=== PATIENT | male | born 1960 | race Caucasian/White ===

== ENCOUNTER 2016-07-07 16:16 | Emergency (ER) | payer OTHER, BC ==
[~2016-07-07] VITALS: Ht 172.7 cm; Wt 89.4 kg
[~2016-07-07 16:16] MED LIST: ASCA500 PO; MULT-506 PO; SIMV40TA2 PO
[2016-07-07 16:19] VITALS: TEMP 37.1; Ht 172.7 cm; Wt 89.4 kg
[2016-07-07] MEDS ORDERED: CHOL1TAB PO (16:33)
[2016-07-07] MEDS ORDERED: ASPI81TA28 PO (16:33)
[2016-07-07] MEDS ORDERED: LIDOCAINE/EPINEPHRINE 1% 20 ML VIAL INFIL ONE (16:45)
[2016-07-07] MEDS ORDERED: DIPHTHERIA/TETANUS/PERTUSSIS 0.5 ML SYR/VIAL IM. ONE (17:00)
--- NOTE | 2016-07-07 17:14 | DIAGNOSTIC IMAGING REPORT ---
CT SCAN OF THE BRAIN WITHOUT IV CONTRAST CLINICAL HISTORY: Fall. Trauma. COMPARISON STUDY: No priors. TECHNIQUE: Unenhanced axial CT scan of the brain is performed from the vertex to the skull base. Automated dose control exposure was utilized. CT DOSE: 823.94 mGycm FINDINGS: Brain parenchyma: The brain parenchyma is normal in appearance. There is no hemorrhage, mass effect, or evidence of acute territorial ischemia by CT criteria. Sanchez-white matter is preserved. No extra-axial fluid collection is seen. Ventricles, sulci, cisterns: Normal in configuration. Intracranial vasculature: There is mild atherosclerotic calcification of the cavernous carotid arteries. Calvarium: There is no depressed calvarial fracture. Sinuses and mastoids: Trace mucosal thickening is seen within the maxillary antra. The remaining visualized paranasal sinuses are clear. The mastoid air cells are well pneumatized. Orbits: The bony orbits are grossly intact. IMPRESSION: There is no hemorrhage, mass effect, or evidence of acute territorial ischemia by CT criteria. Electronically signed by: Clint Carmichael M.D. 07/07/2016 5:12 PM Dictated Date/Time: 07/07/2016 5:07 PM
[2016-07-07] MEDS ORDERED: CEPH500C PO (18:16)
--- NOTE | 2016-07-07 18:17 | EMERGENCY ROOM VISIT NOTE ---
History First contact with patient: 16:27 Chief Complaint: LACERATION/CUT (SUT/DERMABOND) Stated Complaint: CUT LIP & HEAD DUE TO FALL - Nursing Triage Summary: "I fell down 10 foot pit at work." Pt has laceration to inside of bottom lip and back of head. Denies blood thiners. Denies LOC History of Present Illness The patient is a 56 year old male who presents to the Emergency Room with complaints of a fall which occurred at work approximately one hour ago. The patient reports that he tripped and fell into a 10 foot pit. He states that he hit his head. He reports a 4/10 pain in the head but denies any other injuries or pain at this time. The patient did not lose consciousness. He does not take anticoagulation. He reports a history of hyperlipidemia but is otherwise healthy. The patient reports he has a laceration to the back of his head and to the inside of the bottom lip. He has not taken any medication for pain. He denies any vomiting, numbness, weakness, blurred vision, slurred speech, chest pain, abdominal pain or shortness of breath. Review of Systems A complete 6-point Review of Systems was discussed with the patient, with pertinent positives and negatives listed in the History of Present Illness. All remaining Review of Systems questions can be considered negative unless otherwise specified. Past Medical/Surgical History Medical Problems: (1) Hyperlipidemia Social History Smoking Status: Never Smoker Current/Historical Medications Scheduled Ascorbic Acid (Vitamin C), 500 MG PO QPM Aspirin (Aspirin Ec), 81 MG PO QPM Cephalexin Monohydrate (Keflex), 500 MG PO TID Cholecalciferol (Vitamin D-3), 1 TAB PO QPM Multivitamin (Multivitamin), 1 TAB PO QPM Simvastatin (Zocor), 40 MG PO QPM Allergies Coded Allergies: No Known Allergies (Unverified , 06/05/13) Physical Exam Vital Signs Date Time Temp Pulse Resp B/P Pulse Ox O2 Delivery O2 Flow Rate FiO2 07/07/16 18:26 74 16 138/78 98 07/07/16 16:19 37.1 79 18 150/89 97 Room Air Physical Exam VITALS: Vitals are noted on the nurse's note and reviewed by myself. Vital signs stable. GENERAL: This is a 56-year-old male, in no acute distress, nondiaphoretic, well- developed well-nourished. SKIN: There is a 3 cm laceration to the posterior aspect of the scalp. There is minimal active bleeding from the laceration. HEAD: Normocephalic atraumatic. EARS: External auditory canals clear, tympanic membranes pearly alfonso without erythema or effusion bilaterally. No hemotympanum. EYES: Pupils equal round and reactive to light and accommodation. Extraocular movements intact. NOSE: No deformity, no bleeding. MOUTH: Mucous membranes moist. There is a 1 cm gaping laceration to the inside of the lower lip. NECK: Supple without nuchal rigidity. Cervical spine is nontender. HEART: Regular rate and rhythm without murmurs gallops or rubs. LUNGS: Clear to auscultation bilaterally without wheezes, rales or rhonchi. ABDOMEN: Positive bowel sounds x 4. Soft, nontender. MUSCULOSKELETAL: No deformities noted. No tenderness to palpation. Full range of motion throughout. Strength 5/5 throughout. NEURO: Patient was alert and oriented to person place and time. Normal sensation to light and sharp touch. No focal neurological deficits. Medical Decision & Procedures ER Provider Diagnostic Interpretation: CT SCAN OF THE BRAIN WITHOUT IV CONTRAST IMPRESSION: There is no hemorrhage, mass effect, or evidence of acute territorial ischemia by CT criteria. Medications Administered Medications (Trade) Dose Ordered Sig/Stephany Route Start Time Stop Time Status Last Admin Dose Admin Diphtheria/ Pertussis/Tetanus Vacc (Adacel Inj) 0.5 ml ONCE ONCE IM. 07/07/16 17:00 07/07/16 17:01 DC 07/07/16 17:00 0.5 ML Procedure Verbal consent was obtained to perform the procedures. SCALP LACERATION: Using sterile technique the scalp wound was cleaned with Betadine. The area was sterilely draped. 3 ml of 1% buffered lidocaine with epinephrine was used to anesthetize the patient's scalp. Once the patient was numb, the wound was copiously irrigated under pressure with sterile saline. The wound was explored and there were no deep structures present. The laceration was repaired using 7 lala with the wound edges being well approximated. The patient tolerated the procedure well. The bleeding stopped. The area was cleaned with sterile saline and dressed with bacitracin ointment. LIP LACERATION: 1 ml of 1% buffered lidocaine was used to anesthetize the lip laceration. Once the patient was anesthetized, the wound was copiously irrigated under pressure with sterile saline. The wound was explored and no foreign bodies found. The laceration was repaired using 3 simple interrupted 5- 0 Vicryl sutures with the wound edges being well approximated. The patient tolerated the procedure well. Hemostasis was achieved. Medical Decision The patient was evaluate as above. CT of the head was performed and was negative for any intracranial abnormalities. Scalp and lip laceration repairs were performed as noted in the procedure section. The patient was given an Adacel injection. He was placed on Keflex to prevent infection of the lip laceration. Customary suture instructions were reviewed with the patient. Head injury precautions were also reviewed. The patient will follow-up with primary care as needed and will return for worsening symptoms. He verbalized understanding of my assessment and treatment plan and was discharged home in good condition. Impression Primary Impression: Closed head injury Additional Impressions: Scalp laceration Laceration of lower lip Departure Information Dispostion Home / Self-Care Condition GOOD Prescriptions Cephalexin Monohydrate (Keflex) 500 Mg Cap 500 MG PO TID for 5 Days, #15 CAP Prov: Marylu Lynn .KIMMY 07/07/16 Referrals Gilberto Arizmendi M.D. (PCP) Patient Instructions My [facility] Additional Instructions You have received 7 lala on your scalp. These lala are NOT dissolvable and WILL need to be removed by a health care provider in 10 days. You can return to the Emergency Department or contact your Primary Care Provider to have these lala removed. These sutures in your lip will dissolve/fall out on their own. Keflex as prescribed to prevent infection. Proper wound care is essential for adequate wound healing and infection prevention. You can shower and clean the wound with soap and water. Do scour over the wound, pat dry with a towel. Do not submerse the wound until the lala have been removed. You can use an antibiotic ointment with a dressing over the wound for the next 3-4 days. After this time you may leave the wound dry and open to the air. If crust develops over the wound you can use a Q-tip to apply a 1:1 peroxide:water solution to clean the wound. Look for signs of infection of the wound including: increased pain, swelling, foul discharge, streaking, or increased temperature. If any of these are noticed you should return to the Emergency Department for further assessment and treatment. As with any laceration you may have received nerve damage to the surrounding tissues. This damage may or may not be permanent. For pain control, you can use the following [id number] medicines (if >12 yo): - Regular strength (325mg/tab) Tylenol (acetaminophen) 2 tabs every 4-6 hours as needed. Do not exceed 12 tablets in a 24 hour period. Avoid taking more than 4 grams (4000 mg) of Tylenol per day. This includes any other sources of acetaminophen you may take on a regular basis. - Regular strength (200 mg/tab) Advil (ibuprofen) 1-2 tabs every 4-6 hours as needed. Do not exceed a dose of 3200 mg per day. Return to the emergency department if your symptoms worsen despite treatment course outlined above. Problem Qualifiers Primary Impression: Closed head injury Encounter type: initial encounter Qualified Codes: S09.90XA - Unspecified injury of head, initial encounter Additional Impressions: Scalp laceration Encounter type: initial encounter Qualified Codes: S01.01XA - Laceration without foreign body of scalp, initial encounter Laceration of lower lip Encounter type: initial encounter Qualified Codes: S01.511A - Laceration without foreign body of lip, initial encounter
[2016-07-07 18:26] VITALS: BP 138/78; PULSE 74; O2SAT 98
== END 2016-07-07 18:28 | disposition home or self-care (01) ==
LOC: C.EDB 16:17 → C.EDD 18:28
DX: S09.90XA Unspecified injury of head, initial encounter (principal); S01.01XA Laceration without foreign body of scalp, initial encounter; S01.511A Laceration without foreign body of lip, initial encounter; W01.0XXA Fall on same level from slipping, tripping and stumbling without subsequent striking against object, initial encounter; Y99.0 Civilian activity done for income or pay; Y92.89 Other specified places as the place of occurrence of the external cause; Z23 Encounter for immunization; E78.5 Hyperlipidemia, unspecified; Z79.82 Long term (current) use of aspirin; Z79.899 Other long term (current) drug therapy

== ENCOUNTER → 2016-07-22 | Outpatient (CLI) | payer OTHER, BC ==
[~2016-07-22] MED LIST changes: +ASPI81TA28 PO; +CHOL1TAB PO
[2016-07-22 10:52] LABS: BASO % 0.5 %; BASO ABS # 0.03 K/uL (0-0.2); COMPLETE YES; EOS % 2.4 %; HEMATOCRIT 46.3 % (42-52); IG% 0.2 %; LYMPH % 26.7 %; LYMPH ABS # 1.57 K/uL (1.2-3.4); MEAN CELL VOLUME 90.4 fL (80-100); MEAN CORPUSCULAR HEMOGLOBIN 31.1 pg (25-34); MEAN CORPUSCULAR HGB CONC 34.3 g/dl (32-36); MONO % 9.4 %; NEUT % 60.8 %; PLATELET COUNT 202 K/uL (130-400); RED BLOOD COUNT 5.12 M/uL (4.7-6.1); WHITE BLOOD COUNT 5.87 K/uL (4.8-10.8)
[2016-07-22 11:22] LABS: BLOOD UREA NITROGEN 20 mg/dl (7-18); BUN/CREATININE RATIO 21.1 (10-20); CALCIUM 9.4 mg/dl (8.5-10.1); CARBON DIOXIDE 30 mmol/L (21-32); CHLORIDE 107 mmol/L (98-107); CREATININE 0.95 mg/dl (0.60-1.40); GLUCOSE 109 mg/dl (70-99); POTASSIUM 4.6 mmol/L (3.5-5.1); SODIUM 139 mmol/L (136-145)
[2016-07-22 11:32] LABS: ALB/GLOB RATIO 1.1 (0.9-2); ALKALINE PHOSPHATASE 64 U/L (45-117); ALT/SGPT 53 U/L (12-78); AST/SGOT 29 U/L (15-37); CHOLESTEROL 165 mg/dl (0-200); CHOLESTEROL/HDL RATIO 3.7; HDL CHOLESTEROL 45 mg/dl; LDL CHOLESTEROL CALCULATED 95 mg/dl; TRIGLYCERIDES 127 mg/dl (0-150); VERY LOW DENSITY LIPOPROT CALC 25 mg/dl
[2016-07-22 11:34] LABS: ESTIMATED AVERAGE GLUCOSE 117 mg/dl; HA1C FLAG Normal (Normal)
== END | disposition home or self-care (01) ==
LOC: C.LABBC 09:02
PROVIDERS: ATTEND Internal Medicine Geriatric Medicine
DX: Z00.00 Encounter for general adult medical examination without abnormal findings (principal); E78.5 Hyperlipidemia, unspecified; G47.33 Obstructive sleep apnea (adult) (pediatric)

== ENCOUNTER → 2016-09-09 | Outpatient (CLI) | payer BC ==
--- NOTE | 2016-09-09 16:23 | DIAGNOSTIC IMAGING REPORT ---
LEFT SHOULDER MIN 2 VIEWS ROUTINE CLINICAL HISTORY: SHOULDER PAIN pain COMPARISON: None. DISCUSSION: The bones and joint spaces appear intact. There is no evidence of fracture, dislocation or bony disease. There is no evidence for soft tissue swelling. IMPRESSION: Negative study. Electronically signed by: Felipe Madera M.D. 09/09/2016 4:21 PM Dictated Date/Time: 09/09/2016 4:21 PM
== END | disposition home or self-care (01) ==
LOC: C.RADBC 15:58
PROVIDERS: ATTEND Physician Assistant Medical
DX: M25.512 Pain in left shoulder (principal)

== ENCOUNTER → 2017-07-19 | Outpatient (CLI) | payer BC ==
[2017-07-19 13:29] LABS: ALT/SGPT 41 U/L (12-78); AST/SGOT 18 U/L (15-37); BLOOD UREA NITROGEN 17 mg/dl (7-18); CALCIUM 9.4 mg/dl (8.5-10.1); CARBON DIOXIDE 27 mmol/L (21-32); CREATININE 0.99 mg/dl (0.60-1.40); GLUCOSE 103 mg/dl (70-99); POTASSIUM 4.3 mmol/L (3.5-5.1); SODIUM 139 mmol/L (136-145)
[2017-07-19 13:34] LABS: ALKALINE PHOSPHATASE 63 U/L (45-117); CHOLESTEROL 180 mg/dl (0-200); LDL CHOLESTEROL CALCULATED 96 mg/dl; TOTAL PROTEIN 7.6 gm/dl (6.4-8.2)
== END | disposition home or self-care (01) ==
LOC: C.LABPBG 09:24
PROVIDERS: ATTEND Internal Medicine Geriatric Medicine
DX: Z00.00 Encounter for general adult medical examination without abnormal findings (principal); E78.5 Hyperlipidemia, unspecified; G47.33 Obstructive sleep apnea (adult) (pediatric); R73.9 Hyperglycemia, unspecified

== ENCOUNTER → 2017-09-16 | Outpatient (CLI) | payer BC | END | disposition home or self-care (01) | LOC: C.LABPBG 09:26 | PROVIDERS: ATTEND Urology | DX: R97.20 Elevated prostate specific antigen [PSA] (principal) ==

== ENCOUNTER 2023-09-12 16:57 | Inpatient (IN) ==
[2023-09-12 17:24] LABS: Basophils # (auto) 0.05 K/uL (0.00-0.20); Basophils % (auto) 0.6 %; Eosinophils # (auto) 0.15 K/uL (0.00-0.50); Eosinophils % (auto) 1.7 %; Hematocrit (blood only) 46.7 % (42.0-52.0); Immature Granulocytes # (auto) 0.03 K/uL (0.01-0.20); Immature Granulocytes % (auto) 0.3 %; Lymphocytes # (auto) 2.45 K/uL (1.20-3.40); Lymphocytes % (auto) 27.8 %; Mean Corpuscular Hgb Conc 34.3 g/dL (32.0-36.0); Mean Corpuscular Volume 90.5 fL (80.0-100.0); Mean Platelet Volume 12.1 fL (9.4-12.4); Monocytes # (auto) 0.67 K/uL (0.11-0.59); Monocytes % (auto) 7.6 %; Neutrophils # (auto) 5.46 K/uL (1.40-6.50); Platelet Count 210 K/uL (130-400); RDW Coefficient of Variation 13.7 % (11.5-14.5); RDW Standard Deviation 45.6 fL (36.4-46.3); Red Blood Count 5.16 M/uL (4.70-6.10); White Blood Count 8.81 K/ul (4.8-10.8)
--- NOTE | 2023-09-12 17:29 | CT Scan Report ---
CT head/brain wo con CLINICAL HISTORY: 63 years-old Male with dizziness/headache. Acute headache with dizziness TECHNIQUE: Multiple axial CT images of the head were obtained without contrast. A dose lowering tech nique was utilized adhering to the principles of ALARA. CT DOSE: 547.75 mGy.cm COMPARISON: 07/07/2016 FINDINGS: No acute intracranial hemorrhage, midline shift, intracranial mass, hydrocephalus, territorial ischem ia or abnormal extra-axial collection. The calvarium is intact. Mild mucosal thickening of the ethmoid air cells. The mastoid air cells are clear. IMPRESSION: No acute intracranial abnormality. ACT 112: Negative or not required by law. The above report was generated using voice recognition software. It may contain grammatical, syntax o r spelling errors. Electronically signed by: Gautam Pablo M.D. 09/12/2023 5:28 PM
[2023-09-12] MEDS: PROCHLORPERAZINE 2 ML IV ONE (17:36)
[2023-09-12] MEDS: diphenhydrAMINE 50 MG/ML VIAL IV STA (17:36)
[2023-09-12] MEDS: SODIUM CHLORIDE 0.9% 1,000 ML IV ONE (17:37)
[2023-09-12 17:42] LABS: Albumin Globulin Ratio 1.6 (0.9-2); Albumin Level 4.5 gm/dl (3.4-5.0); BUN Creatinine Ratio 15.7 (10-20); Bilirubin,Total 0.5 mg/dl (0.2-1.0); Calcium 9.8 mg/dl (8.6-10.3); Creatinine Clr Calc Pharmacy 77.4 ml/min; Est GFR (African American) 84.2 ml/min; Est GFR (Non-African American) 72.7 ml/min; Globulin 2.8 gm/dl (2.5-4.0); Potassium 3.8 mmol/L (3.5-5.1); Total Protein 7.3 gm/dl (6.0-8.3)
[2023-09-12 17:51] LABS: INR 0.9 (0.9-1.1); Partial Thromboplastin Ratio 0.9; Partial Thromboplastin Time 23 Seconds (21-31); Prothrombin Time 10.3 Seconds (9.0-12.0)
[2023-09-12 17:57] LABS: Troponin I High Sensitivity 2.5 pg/ml (0-20)
--- NOTE | 2023-09-12 17:59 | Emergency Department Note ---
Impression & Plan Diplopia, Headache ED Provider Note HISTORY OF PRESENT ILLNESS: Patient is a 63-year-old male presenting with headache and double vision. Patient reports he has been having a recurrent frontal headache for the last 3 to 4 weeks. Reports he is also been having double vision for the last 4 weeks. Reports that when he is looking forward or to the right with both of his eyes open, he sees double. He states that when he looks to the left his vision is normal. He states that the double vision has been recurrent for the last 4 weeks and today has been the worst. He denies any recent head injury or chiropractic manipulation of his neck. He denies any numbness or tingling or weakness in his extremities. Denies any chest pain or shortness of breath. Denies any fevers. He reports he had headache with double vision in June 2023, but the symptoms only lasted for a few days and then went away. He reports that his headache is worse with bright lights. Denies any pain with range of motion of the neck ROS: as above PHYSICAL EXAM: Constitutional: Patient appears in no acute distress. HENT: Head: Normocephalic and atraumatic. Eyes: EOMI, PERRL Mouth/Throat: Mucous membranes moist. Neck: Trachea midline. Neck supple. Cardiovascular: RRR, No murmurs, rubs or gallops. Intact distal pulses. Pulmonary/Chest: No respiratory distress. Breath sounds clear and equal bilaterally. No wheezes or rales. Abdominal: Abdomen soft, no tenderness, rebound or guarding. Musculoskeletal: No edema, tenderness or deformity noted. Skin: Warm and dry. No rash, erythema, pallor or cyanosis Psychiatric: Appropriate mood and affect for situation. Neurological: Alert and keenly responsive. CN II-XII grossly intact, moving all extremities equally and fully. MDM: - Vitals signs showed hypertension. - History obtained via patient. History as above. - Chronic conditions affecting care: GERD; HLD; prediabetes; CAD - Differential diagnoses include, but are not limited to: primary headache; cranial nerve stroke; CVA; intracranial hemorrhage; electrolyte abnormality; primary headache - Order placed for continuous cardiac monitoring. At this time, monitor showed rate of 62 bpm with normal sinus rhythm, per my interpretation. - External medical records reviewed. [facility] administration report dated 08/16/2023 was reviewed. Patient follows in their clinic for his yearly checkups. - EKG interpreted by myself showed normal sinus rhythm. Rate 82 bpm. QT 360. No acute ischemic changes. - Laboratory workup interpreted by myself showed normal WBC; stable electrolytes; normal troponin; normal PT/INR - CT head wo contrast negative for acute pathology, per radiology - MRI brain wo contrast negative for acute pathology - Patient givne 1L NS, 10 mg IV compazine and 50 mg IV benadryl for headache. - Given patient's physical exam findings and description of his diplopia, concern for cranial nerve stroke. Will admit for further strokelike workup. - Discussion was had with case advocate about patient's case and need for admission - Hospitalist consulted for admission - [facility] ASSESSMENT AND PLAN: Diagnosis: Diplopia; headache Plan: Admit Past Med/Surg History Problem List (Updated 09/12/23 @ 21:05 by Marquita Kruger MD) Headache (Acute) Diplopia (Acute) Mild mitral regurgitation Abnormal nuclear stress test Chest pain syndrome CAD (coronary artery disease) Exertional chest pain Colon cancer screening Encounter for pre-operative examination Smokeless tobacco use Encounter for screening for malignant neoplasm of rectum Encounter for screening for malignant neoplasm of colon Insomnia Hyperlipidemia Prediabetes Obstructive sleep apnea NO DEVICE USED GERD without esophagitis Elevated PSA BPH (benign prostatic hyperplasia) Arthritis Medical History (Updated 09/12/23 @ 21:05 by Marquita Kruger MD) Insomnia Prediabetes Obstructive sleep apnea NO DEVICE USED GERD without esophagitis Elevated PSA BPH (benign prostatic hyperplasia) Closed head injury 7 YEARS AGO>FELL 8 FEET AT WORK (DENIES ANY CURRENT PROBLEMS FROM EVENT) Hyperlipidemia Surgical History History of colonoscopy History of tonsillectomy S/P tonsillectomy S/P hernia repair Family History Father Myocardial infarction Brother Prostate cancer Grandmother (Maternal) Family history of diabetes mellitus Other No family history of adverse response to anesthesia Denies family history of Ovarian cancer Breast cancer Colorectal cancer Social History Smoking Status: Never smoker Cigarettes Per Day: USING NICOTINE PATCH NOW *TRYING TO QUIT CHEWING; Second Hand Exposure: Yes ( A CHILD); Do You Dip or Chew Tobacco: No (SEE ABOVE); Hx Alcohol Use: Yes Alcohol type: beer Alcohol Intake Frequency: Monthly or Less Hx Substance Use: No Preferred Language: Mauritian Communication Ability: Effective Visual Impairment: No Limitations Hearing Ability: Normal Motor Expert Required: No Beliefs That Will Affect Care: None marital status: Single Current Living Situation: Alone current occupational status: unemployed Feels Safe at Home: Yes Dental Care, Regularly: Yes Physical Activity Frequency: Other Physical Activity Frequency Comment: patient states that he is active Seatbelt Use: always Sunscreen Use: No Assistive Devices: Glasses Allergies Allergies Allergy/AdvReac Type Severity Reaction Status Date / Time No Known Allergies Allergy Verified 09/12/23 20:41 Home Meds Home Medications Medication Instructions Recorded Confirmed aspirin 81 mg tablet,delayed 81 mg PO HS 07/26/19 09/12/23 release cholecalciferol (vitamin D3) 25 75 mcg PO DAILY 07/26/19 09/12/23 mcg (1,000 unit) capsule ascorbic acid (vitamin C) 500 mg 500 mg PO HS 08/20/21 09/12/23 tablet (Vitamin C) cyanocobalamin (vitamin B-12) 1,000 mcg PO DAILY 08/20/21 09/12/23 1,000 mcg tablet atorvastatin 80 mg tablet 80 mg PO HS 09/12/23 09/12/23 multivitamin 1 tab PO DAILY 09/12/23 09/12/23 trazodone 50 mg tablet 50 mg PO HS PRN Sleep 09/12/23 09/12/23 Results & Data (ED) Vital Signs Vital Signs - 24 hr 09/12/23 16:58 09/12/23 17:22 09/12/23 18:33 Temperature 36.7 C Temperature Source Temporal Artery Scan Pulse Rate 83 65 Pulse Rate [Apical] 75 Pulse Rhythm [Apical] Regular Pulse Strength [Apical] Normal Respiratory Rate 19 18 Respiratory Effort / Characteristics Non-Labored Spontaneous Non-Labored Spontaneous Respiratory Depth Normal Normal Respiratory Pattern Regular Blood Pressure 168/89 H Blood Pressure [Right Arm] 149/76 H Blood Pressure Mean 115 Blood Pressure Mean [Right Arm] 100 Pulse Oximetry 94 97 Oxygen Delivery Method Room Air Room Air Sepsis Recent Fever Within 48 Hours No Sepsis New/Unexplained Change in Mental Status N/A Sepsis Action Taken by Nursing No Action Required 09/12/23 19:00 09/12/23 19:51 Temperature Temperature Source Pulse Rate Pulse Rate [Apical] 66 61 Pulse Rhythm [Apical] Regular Regular Pulse Strength [Apical] Normal Normal Respiratory Rate 20 18 Respiratory Effort / Characteristics Non-Labored Spontaneous Non-Labored Spontaneous Respiratory Depth Normal Normal Respiratory Pattern Regular Regular Blood Pressure Blood Pressure [Right Arm] 131/61 Blood Pressure Mean Blood Pressure Mean [Right Arm] 84 Pulse Oximetry 97 97 Oxygen Delivery Method Room Air Room Air Sepsis Recent Fever Within 48 Hours Sepsis New/Unexplained Change in Mental Status Sepsis Action Taken by Nursing Laboratory Data 09/12/23 17:04 09/12/23 17:04 Lab Results 09/12/23 Range/Units 17:04 WBC 8.81 (4.8-10.8) K/ul RBC 5.16 (4.70-6.10) M/uL Hgb 16.0 (14.0-18.0) g/dl Hct 46.7 (42.0-52.0) % MCV 90.5 (80.0-100.0) fL MCH 31.0 (25.0-34.0) pg MCHC 34.3 (32.0-36.0) g/dL RDW Std Deviation 45.6 (36.4-46.3) fL RDW Coeff of Horacio 13.7 (11.5-14.5) % Plt Count 210 (130-400) K/uL MPV 12.1 (9.4-12.4) fL Immature Gran % (Auto) 0.3 % Neut % (Auto) 62.0 % Lymph % (Auto) 27.8 % [place] % (Auto) 7.6 % Eos % (Auto) 1.7 % Baso % (Auto) 0.6 % Neut # (Auto) 5.46 (1.40-6.50) K/uL Lymph # (Auto) 2.45 (1.20-3.40) K/uL [place] # (Auto) 0.67 H (0.11-0.59) K/uL Eos # (Auto) 0.15 (0.00-0.50) K/uL Baso # (Auto) 0.05 (0.00-0.20) K/uL Immature Gran # (Auto) 0.03 (0.01-0.20) K/uL PT 10.3 (9.0-12.0) Seconds INR 0.9 (0.9-1.1) APTT 23 (21-31) Seconds PTT Ratio 0.9 Sodium 136 (136-145) mmol/L Potassium 3.8 (3.5-5.1) mmol/L Chloride 103 (98-107) mmol/L Carbon Dioxide 25 (21-32) mmol/L Anion Gap 8 (3-11) BUN 17 (6-23) mg/dl Creatinine 1.08 (0.6-1.4) mg/dl Est Cr Clr Drug Dosing 77.4 ml/min Est GFR ( Amer) 84.2 ml/min Est GFR (Non-Af Amer) 72.7 ml/min BUN/Creatinine Ratio 15.7 (10-20) Glucose 152 H (70-99(Fasting)) mg/dl Calcium 9.8 (8.6-10.3) mg/dl Magnesium 2.0 (1.7-2.4) mg/dl Total Bilirubin 0.5 (0.2-1.0) mg/dl AST 22 (13-39) U/L ALT 31 (7-52) U/L Alkaline Phosphatase 72 (34-104) U/L Troponin I High Sens 2.5 (0-20) pg/ml Total Protein 7.3 (6.0-8.3) gm/dl Albumin 4.5 (3.4-5.0) gm/dl Globulin 2.8 (2.5-4.0) gm/dl Albumin/Globulin Ratio 1.6 (0.9-2) Administered Medications Discontinued Medications Diphenhydramine HCl (Diphenhydramine 50 Mg/Ml Vial) 50 mg IV NOW STA Stop: 09/12/23 17:30 Last Admin: 09/12/23 17:36 Dose: 50 mg Documented By: EMEKA Sodium Chloride (Nss) 1,000 mls @ 999 mls/hr IV .Q1H1M ONE Stop: 09/12/23 18:29 Last Infusion: 09/12/23 18:39 Dose: Infused Documented By: Admin: 09/12/23 17:37 Dose: 999 mls/hr Documented By: EMEKA Prochlorperazine (Compazine) 2 mls @ 1 mls/min IV ONE ONE Stop: 09/12/23 17:30 Last Admin: 09/12/23 17:36 Dose: 1 mls/min Documented By: O Imaging Data Radiologist's Impression: Head CT 09/12/23 17:01 CT head/brain wo con CLINICAL HISTORY: 63 years-old Male with dizziness/headache. Acute headache with dizziness TECHNIQUE: Multiple axial CT images of the head were obtained without contrast. A dose lowering technique was utilized adhering to the principles of ALARA. CT DOSE: 547.75 mGy.cm COMPARISON: 07/07/2016 FINDINGS: No acute intracranial hemorrhage, midline shift, intracranial mass, hydrocephalus, territorial ischemia or abnormal extra-axial collection. The calvarium is intact. Mild mucosal thickening of the ethmoid air cells. The mastoid air cells are clear. IMPRESSION: No acute intracranial abnormality. ACT 112: Negative or not required by law. The above report was generated using voice recognition software. It may contain grammatical, syntax or spelling errors. Electronically signed by: Gautam Pablo M.D. 09/12/2023 5:28 PM Brain MRI 09/12/23 17:59 Exam(s): MRI HEAD Without Contrast EXAM: MR Head Without Intravenous Contrast CLINICAL HISTORY: Reason for exam: diplopia. TECHNIQUE: Magnetic resonance images of the head/brain without intravenous contrast in multiple planes. COMPARISON: CT head from September 12, 2023. FINDINGS: Brain: Unremarkable. No mass. No hemorrhage. No acute infarct. Ventricles: Unremarkable. No ventriculomegaly. Bones/joints: Unremarkable. No acute fracture. Sinuses: Trace amount of mucosal thickening involving several the ethmoid air cells and right frontal sinus. No gas/fluid levels are seen. The remaining paranasal sinuses are within normal limits. Mastoid air cells: Unremarkable as visualized. No mastoid effusion. Orbits: Unremarkable as visualized. IMPRESSION: No acute findings in the head/brain. Electronically signed by: Everton Rivera MD 09/12/23 20:12 PM Discharge Plan Visit Data Chief Complaint: Headache Stated Complaint: HEADACHE,DOUBLE VISION ED Provider: Marquita Kruger Discharge Problem: Diplopia, Headache Forms Stand Alone Forms: [employer] Prescriptions Prescriptions: No Action aspirin 81 mg tablet,delayed release (DR/EC) 81 mg PO HS cholecalciferol (vitamin D3) 25 mcg (1,000 unit) capsule 75 mcg PO DAILY cyanocobalamin (vitamin B-12) 1,000 mcg Tablet 1,000 mcg PO DAILY ascorbic acid (vitamin C) [Vitamin C] 500 mg Tablet 500 mg PO HS multivitamin Tablet 1 tab PO DAILY atorvastatin 80 mg Tablet 80 mg PO HS trazodone 50 mg tablet 50 mg PO HS PRN (Reason: Sleep) Patient Comments: PT STATES TAKES PRN SLEEP Referrals Referrals: Rodrigo Conn MD [Primary Care Provider] -
--- NOTE | 2023-09-12 20:13 | Magnetic Resonance Report ---
Exam(s): MRI HEAD Without Contrast EXAM: MR Head Without Intravenous Contrast CLINICAL HISTORY: Reason for exam: diplopia. TECHNIQUE: Magnetic resonance images of the head/brain without intravenous contrast in multiple planes. COMPARISON: CT head from September 12, 2023. FINDINGS: Brain: Unremarkable. No mass. No hemorrhage. No acute infarct. Ventricles: Unremarkable. No ventriculomegaly. Bones/joints: Unremarkable. No acute fracture. Sinuses: Trace amount of mucosal thickening involving several the ethmoid air cells and right frontal sinus. No gas/fluid levels are seen. The remaining paranasal sinuses are within normal limits. Mastoid air cells: Unremarkable as visualized. No mastoid effusion. Orbits: Unremarkable as visualized. IMPRESSION: No acute findings in the head/brain. Electronically signed by: Everton Rivera MD 09/12/23 20:12 PM
--- NOTE | 2023-09-12 21:44 | History & Physical Report ---
Date of Service September 12, 2023 Assessment & Plan (1) Diplopia: Plan: 63-year-old male with past medical history significant for CAD, prediabetes, hyperlipidemia, chronic chest pain syndrome, mitral regurgitation presents because of double vision when he is looking to the right side going on for last 3 to 4 weeks. Patient states when he looks to left-sided vision is okay. In the morning vision seems okay. As a day progress it gets worse. Lights bothering him. Sunlight is also bothering him. Having headaches. States vision is better when he closes his right eye. Patient states had similar symptoms in June for 3 to 4 weeks and and then one day he had a sweating and all symptoms resolved. And symptoms started back again 3 to 4 weeks ago. No difficulty ambulating. No imbalance. Climbing steps okay. Currently no earache or runny nose or sore throat. No cough. No difficulty swallowing. Appetite is okay. No chest pain or shortness of breath. No nausea. No abdominal pain. Normal bowel and bladder movements. Currently resting comfor tably and hemodynamically stable. Diplopia When looking to the right side going on for 3 to 4 weeks States had similar symptoms June for 3 to [address] head and MRI head unremarkable. ER notified [facility] neurology and recommended aspirin and statin for possible ischemic nerve palsy if diabetic Patient is already on aspirin and statin. Will add Plavix for now Will follow CTA head and neck and echo to complete the workup Neurochecks Neurology consult in a.m. for further recommendations Close monitor Prediabetes Will follow HbA1c levels History of CAD On aspirin and statin Follows with cardiology Hyperlipidemia On statin Will follow lipid profile JERILYN DVT prophylaxis SCDs for now Disposition Telemetry Full code History of Present Illness Chief Complaint: Diplopia Primary Care Provider: Rodrigo Conn MD 63-year-old male with past medical history significant for CAD, prediabetes, hyperlipidemia, chronic chest pain syndrome, mitral regurgitation presents because of double vision when he is looking to the right side going on for last 3 to 4 weeks. Patient states when he looks to left-sided vision is okay. In the morning vision seems okay. As a day progress it gets worse. Lights bothering him. Sunlight is also bothering him. Having headaches. States vision is better when he closes his right eye. Patient states had similar symptoms in June for 3 to 4 weeks and and then one day he had a sweating and all symptoms resolved. And symptoms started back again 3 to 4 weeks ago. No difficulty ambulating. No imbalance. Climbing steps okay. Currently no earache or runny nose or sore throat. No cough. No difficulty swallowing. Appetite is okay. No chest pain or shortness of breath. No nausea. No abdominal pain. Normal bowel and bladder movements. Currently resting comfor tably and hemodynamically stable. Past medical history. As mentioned above. Past surgical history. Colonoscopy. Tonsillectomy. S/p hernia repair. Family history. Significant for father had NE. Brother had prostate cancer. Family history of diabetes. Social history. Denies smoking. Quit chewing tobacco about a year ago. Alcohol occasional. No drug use. Allergies Allergy/AdvReac Type Severity Reaction Status Date / Time No Known Allergies Allergy Verified 09/12/23 20:41 Home Medications Medication Instructions Recorded Confirmed Type aspirin 81 mg tablet,delayed 81 mg PO HS 07/26/19 09/12/23 History release cholecalciferol (vitamin D3) 25 75 mcg PO DAILY 07/26/19 09/12/23 History mcg (1,000 unit) capsule ascorbic acid (vitamin C) 500 mg 500 mg PO HS 08/20/21 09/12/23 History tablet (Vitamin C) cyanocobalamin (vitamin B-12) 1,000 mcg PO DAILY 08/20/21 09/12/23 History 1,000 mcg tablet atorvastatin 80 mg tablet 80 mg PO HS 09/12/23 09/12/23 History multivitamin 1 tab PO DAILY 09/12/23 09/12/23 History trazodone 50 mg tablet 50 mg PO HS PRN Sleep 09/12/23 09/12/23 History Past Med/Surg History Problem List (Updated 09/12/23 @ 21:05 by Marquita Kruger MD) Headache (Acute) Diplopia (Acute) Mild mitral regurgitation Abnormal nuclear stress test Chest pain syndrome CAD (coronary artery disease) Exertional chest pain Colon cancer screening Encounter for pre-operative examination Smokeless tobacco use Encounter for screening for malignant neoplasm of rectum Encounter for screening for malignant neoplasm of colon Insomnia Hyperlipidemia Prediabetes Obstructive sleep apnea NO DEVICE USED GERD without esophagitis Elevated PSA BPH (benign prostatic hyperplasia) Arthritis Medical History (Updated 09/12/23 @ 21:05 by Marquita Kruger MD) Closed head injury 7 YEARS AGO>FELL 8 FEET AT WORK (DENIES ANY CURRENT PROBLEMS FROM EVENT) Surgical History History of colonoscopy History of tonsillectomy S/P tonsillectomy S/P hernia repair Family History Father Myocardial infarction Brother Prostate cancer Grandmother (Maternal) Family history of diabetes mellitus Other No family history of adverse response to anesthesia Denies family history of Ovarian cancer Breast cancer Colorectal cancer Social History Smoking Status: Unknown if ever smoked Cigarettes Per Day: USING NICOTINE PATCH NOW *TRYING TO QUIT CHEWING; Second Hand Exposure: Yes ( A CHILD); Do You Dip or Chew Tobacco: No (SEE ABOVE); Hx Alcohol Use: Yes Alcohol type: beer Alcohol Intake Frequency: Monthly or Less Hx Substance Use: No Preferred Language: Cymraes Communication Ability: Effective Visual Impairment: No Limitations Hearing Ability: Normal [employer]er Required: No Beliefs That Will Affect Care: None marital status: Single Current Living Situation: Alone current occupational status: unemployed Other Information That Helps Us Care for You: No Feels Safe at Home: Yes Safety Concerns: Feels Safe At This Time Dental Care, Regularly: Yes Physical Activity Frequency: Other Physical Activity Frequency Comment: patient states that he is active Seatbelt Use: always Sunscreen Use: No Assistive Devices: None Review of Systems Review of Systems: All systems reviewed & are unremarkable except as noted in HPI & below Physical Exam Physical Exam: General- Not in distress. Head- atraumatic Eyes- PERRL, EOMI. ENT- oropharynx clear Neck- supple, no JVD. Lungs- clear to auscultation no wheezing or crackles. Heart- regular rate and rhythm; no murmur, no gallop. Abdomen- normal bowel sounds, soft, nontender, no distension. Extremities- no pretibial edema, no erythema seen. Neuro- alert, oriented PERRL, EOMI; no facial palsy; no dysarthria; motor 5/5 bilaterally; co ordination of movements normal, no pronator drift,sensations intact,Position sense intact. Results & Data Results & Data Vital Signs (Past 12 Hours) Vital Signs Temp Pulse Pulse Resp BP BP Pulse Ox 09/12/23 19:51 61 18 131/61 97 09/12/23 19:00 66 20 97 09/12/23 18:33 65 09/12/23 17:22 75 18 149/76 H 97 09/12/23 16:58 36.7 C 83 19 168/89 H 94 O2 Del Method 09/12/23 19:51 Room Air 09/12/23 19:00 Room Air 09/12/23 18:33 09/12/23 17:22 Room Air 09/12/23 16:58 Room Air Diagnostic Findings Laboratory Results WBC 8.81 K/ul (4.8-10.8) 09/12/23 17:04 RBC 5.16 M/uL (4.70-6.10) 09/12/23 17:04 Hgb 16.0 g/dl (14.0-18.0) 09/12/23 17:04 Hct 46.7 % (42.0-52.0) 09/12/23 17:04 MCV 90.5 fL (80.0-100.0) 09/12/23 17:04 MCH 31.0 pg (25.0-34.0) 09/12/23 17:04 MCHC 34.3 g/dL (32.0-36.0) 09/12/23 17:04 RDW Std Deviation 45.6 fL (36.4-46.3) 09/12/23 17:04 RDW Coeff of Horacio 13.7 % (11.5-14.5) 09/12/23 17:04 Plt Count 210 K/uL (130-400) 09/12/23 17:04 MPV 12.1 fL (9.4-12.4) 09/12/23 17:04 Immature Gran % (Auto) 0.3 % 09/12/23 17:04 Neut % (Auto) 62.0 % 09/12/23 17:04 Lymph % (Auto) 27.8 % 09/12/23 17:04 Kendall % (Auto) 7.6 % 09/12/23 17:04 Eos % (Auto) 1.7 % 09/12/23 17:04 Baso % (Auto) 0.6 % 09/12/23 17:04 Neut # (Auto) 5.46 K/uL (1.40-6.50) 09/12/23 17:04 Lymph # (Auto) 2.45 K/uL (1.20-3.40) 09/12/23 17:04 Kendall # (Auto) 0.67 K/uL (0.11-0.59) H 09/12/23 17:04 Eos # (Auto) 0.15 K/uL (0.00-0.50) 09/12/23 17:04 Baso # (Auto) 0.05 K/uL (0.00-0.20) 09/12/23 17:04 Immature Gran # (Auto) 0.03 K/uL (0.01-0.20) 09/12/23 17:04 PT 10.3 Seconds (9.0-12.0) 09/12/23 17:04 INR 0.9 (0.9-1.1) 09/12/23 17:04 APTT 23 Seconds (21-31) 09/12/23 17:04 PTT Ratio 0.9 09/12/23 17:04 Sodium 136 mmol/L (136-145) 09/12/23 17:04 Potassium 3.8 mmol/L (3.5-5.1) 09/12/23 17:04 Chloride 103 mmol/L (98-107) 09/12/23 17:04 Carbon Dioxide 25 mmol/L (21-32) 09/12/23 17:04 Anion Gap 8 (3-11) 09/12/23 17:04 BUN 17 mg/dl (6-23) 09/12/23 17:04 Creatinine 1.08 mg/dl (0.6-1.4) 09/12/23 17:04 Est Cr Clr Drug Dosing 77.4 ml/min 09/12/23 17:04 Est GFR ( Amer) 84.2 ml/min 09/12/23 17:04 Est GFR (Non-Af Amer) 72.7 ml/min 09/12/23 17:04 BUN/Creatinine Ratio 15.7 (10-20) 09/12/23 17:04 Glucose 152 mg/dl (70-99(Fasting)) H 09/12/23 17:04 Calcium 9.8 mg/dl (8.6-10.3) 09/12/23 17:04 Magnesium 2.0 mg/dl (1.7-2.4) 09/12/23 17:04 Total Bilirubin 0.5 mg/dl (0.2-1.0) 09/12/23 17:04 AST 22 U/L (13-39) 09/12/23 17:04 ALT 31 U/L (7-52) 09/12/23 17:04 Alkaline Phosphatase 72 U/L (34-104) 09/12/23 17:04 Troponin I High Sens 2.5 pg/ml (0-20) 09/12/23 17:04 Total Protein 7.3 gm/dl (6.0-8.3) 09/12/23 17:04 Albumin 4.5 gm/dl (3.4-5.0) 09/12/23 17:04 Globulin 2.8 gm/dl (2.5-4.0) 09/12/23 17:04 Albumin/Globulin Ratio 1.6 (0.9-2) 09/12/23 17:[address] 09/12/23 17:01 CT head/brain wo con CLINICAL HISTORY: 63 years-old Male with dizziness/headache. Acute headache with dizziness TECHNIQUE: Multiple axial CT images of the head were obtained without contrast. A dose lowering technique was utilized adhering to the principles of ALARA. CT DOSE: 547.75 mGy.cm COMPARISON: 07/07/2016 FINDINGS: No acute intracranial hemorrhage, midline shift, intracranial mass, hydrocephalus, territorial ischemia or abnormal extra-axial collection. The calvarium is intact. Mild mucosal thickening of the ethmoid air cells. The mastoid air cells are clear. IMPRESSION: No acute intracranial abnormality. ACT 112: Negative or not required by law. The above report was generated using voice recognition software. It may contain grammatical, syntax or spelling errors. Electronically signed by: Gautam Pablo M.D. 09/12/2023 5:28 PM Brain MRI 09/12/23 17:59 Exam(s): MRI HEAD Without Contrast EXAM: MR Head Without Intravenous Contrast CLINICAL HISTORY: Reason for exam: diplopia. TECHNIQUE: Magnetic resonance images of the head/brain without intravenous contrast in multiple planes. COMPARISON: CT head from September 12, 2023. FINDINGS: Brain: Unremarkable. No mass. No hemorrhage. No acute infarct. Ventricles: Unremarkable. No ventriculomegaly. Bones/joints: Unremarkable. No acute fracture. Sinuses: Trace amount of mucosal thickening involving several the ethmoid air cells and right frontal sinus. No gas/fluid levels are seen. The remaining paranasal sinuses are within normal limits. Mastoid air cells: Unremarkable as visualized. No mastoid effusion. Orbits: Unremarkable as visualized. IMPRESSION: No acute findings in the head/brain. Electronically signed by: Everton Rivera MD 09/12/23 20:12 PM ECG Additional Comments: ECG. Normal sinus rhythm rate of 82. Nonspecific T wave abnormalities in inferior leads. Code Status & VTE Plan VTE Prophylaxis Plan VTE Prophylaxis will be ordered: Yes
[2023-09-12] MEDS ORDERED: traZODone HCL 50 MG TAB PO PRN (23:07)
[2023-09-12] MEDS ORDERED: POLYETHYLENE (MIRALAX) 17 GM PACK PO PRN (23:07)
[2023-09-12] MEDS ORDERED: NITROGLYCERIN SL 0.4 MG/TAB TAB SL PRN (23:07)
[2023-09-13] MEDS: ACETAMINOPHEN 325 MG TAB PO PRN (00:01)
[2023-09-13] MEDS: ATORVASTATIN 40 MG TAB PO SCH (00:01)
[2023-09-13] MEDS: ASPIRIN 81 MG ECTAB PO SCH (00:01)
[2023-09-13] MEDS: CLOPIDOGREL BISULFATE 75 MG TAB PO ONE (00:01)
[2023-09-13] MEDS: SODIUM CHLORIDE 0.9% 1,000 ML IV SCH (00:05)
[2023-09-13 00:29] LABS: Appearance Urine Clear (Clear); Bacteria Urine Automated None Seen (None Seen); Bilirubin Urine Negative (Negative); Blood Urine Negative (Negative); Cast Urine Automated 0-2 /lpf (0-2); Color Urine Yellow; Epithelial Cell Urine Auto 0-2 /hpf (0-2); Glucose Urine UA Negative (Negative); Ketones Urine Negative (Negative); Leukocyte Esterase Urine Trace (Negative); Nitrite Urine Negative (Negative); Protein Urine Negative (Negative); RBC Urine Automated 0-2 /hpf (0-2); Specific Gravity Urine 1.021 (1.000-1.030); Urobilinogen Urine Negative (Negative); WBC Urine Automated 0-5 /hpf (0-5); pH Urine 5.5 (4.5-7.5)
--- NOTE | 2023-09-13 00:59 | CT Scan Report ---
Exam(s): CTA NECK With Contrast IV Amt: 119 ml optiray 320 EXAM: CT Angiography Neck With Intravenous Contrast CLINICAL HISTORY: Reason for exam: diplopia. TECHNIQUE: Routine carotid CT angiography protocol was performed with intravenous contrast. NASCET criteria using the distal ICAs for comparison were used for evaluation of stenoses. CTDI is 41.7 mGy and DLP is 541.51 mGy-cm. Automated exposure control was utilized for the study. A dose lowering technique was utilized adhering to the principles of ALARA. MIP reconstructed images were created and reviewed. CONTRAST: Patient received 119 ml optiray 320 of IV contrast COMPARISON: None. FINDINGS: VASCULATURE: Right common carotid artery: Unremarkable. No occlusion or significant stenosis. No dissection. Right internal carotid artery: Unremarkable. Extracranial segment is patent with no occlusion or significant stenosis. No dissection. Right external carotid artery: Unremarkable. No occlusion. Right vertebral artery: Unremarkable. No occlusion or significant stenosis. No dissection. Left common carotid artery: Small amount of calcified plaque in the distal left common carotid artery with less than 20% stenosis. No dissection. Left internal carotid artery: Unremarkable. Extracranial segment is patent with no occlusion or significant stenosis. No dissection. Left external carotid artery: Unremarkable. No occlusion. Left vertebral artery: Unremarkable. No occlusion or significant stenosis. No dissection. Aorta: The aortic arch is mildly calcified but nondilated. There is no aneurysm or dissection. NECK: Bones/joints: Mild to moderate multilevel degenerative changes throughout the spine. No acute fracture or subluxation is seen. Soft tissues: Unremarkable. Lung apices: Clear. CAROTID STENOSIS REFERENCE USING NASCET CRITERIA: % ICA stenosis = (1 - narrowest ICA diameter/diameter of distal cervical ICA) x 100. Mild - <50% stenosis. Moderate - 50-69% stenosis. Severe - 70-94% stenosis. Near occlusion - 95-99% stenosis. Occluded - 100% stenosis. IMPRESSION: No acute findings in the arteries of the neck. Electronically signed by: Everton Rivera MD 09/13/23 00:58 AM
--- NOTE | 2023-09-13 01:01 | CT Scan Report ---
Exam(s): CTA HEAD With Contrast IV Amt: 119 ml optiray 320 EXAM: CT Angiography Head With Intravenous Contrast CLINICAL HISTORY: Reason for exam: diplopia. TECHNIQUE: Axial computed tomographic angiography images of the head with intravenous contrast. CTDI is 41.7 mGy and DLP is 541.51 mGy-cm. Automated exposure control was utilized for the study. A dose lowering technique was utilized adhering to the principles of ALARA. MIP reconstructed images were created and reviewed. CONTRAST: Patient received 119 ml optiray 320 of IV contrast COMPARISON: No relevant prior studies available. FINDINGS: Right internal carotid artery: Small amount of calcified plaque in the distal right internal carotid artery with less than 20% stenosis. No aneurysm. Right anterior cerebral artery: Unremarkable. No occlusion or significant stenosis. No aneurysm. Right middle cerebral artery: Unremarkable. No occlusion or significant stenosis. No aneurysm. Right posterior cerebral artery: Unremarkable. No occlusion or significant stenosis. No aneurysm. Right vertebral artery: Unremarkable as visualized. Left internal carotid artery: No acute findings. Intracranial segment is patent with no significant stenosis. No aneurysm. Left anterior cerebral artery: Unremarkable. No occlusion or significant stenosis. No aneurysm. Left middle cerebral artery: Unremarkable. No occlusion or significant stenosis. No aneurysm. Left posterior cerebral artery: There is a normal anatomic variant of origin of the left posterior cerebral artery from the anterior circulation. No occlusion or significant stenosis. No aneurysm. Left vertebral artery: Unremarkable as visualized. Basilar artery: Unremarkable. No occlusion or significant stenosis. No aneurysm. IMPRESSION: No acute findings in the arteries of the head/brain. Electronically signed by: Everton Rivera MD 09/13/23 00:59 AM
[2023-09-13 06:24] LABS: Basophils # (auto) 0.05 K/uL (0.00-0.20); Basophils % (auto) 0.6 %; Eosinophils # (auto) 0.26 K/uL (0.00-0.50); Eosinophils % (auto) 3.2 %; Hematocrit (blood only) 44.3 % (42.0-52.0); Hemoglobin 15.4 g/dl (14.0-18.0); Immature Granulocytes # (auto) 0.01 K/uL (0.01-0.20); Immature Granulocytes % (auto) 0.1 %; Lymphocytes # (auto) 2.71 K/uL (1.20-3.40); Lymphocytes % (auto) 33.2 %; Mean Corpuscular Hemoglobin 31.6 pg (25.0-34.0); Mean Corpuscular Hgb Conc 34.8 g/dL (32.0-36.0); Mean Platelet Volume 12.1 fL (9.4-12.4); Monocytes # (auto) 0.67 K/uL (0.11-0.59); Monocytes % (auto) 8.2 %; Neutrophils # (auto) 4.46 K/uL (1.40-6.50); Neutrophils % (auto) 54.7 %; Platelet Count 175 K/uL (130-400); RDW Coefficient of Variation 13.8 % (11.5-14.5); Red Blood Count 4.87 M/uL (4.70-6.10); White Blood Count 8.16 K/ul (4.8-10.8)
[2023-09-13 06:30] LABS: BUN Creatinine Ratio 16.3 (10-20); Calcium 8.8 mg/dl (8.6-10.3); Chol HDL Ratio 3.2 (0-5); Creatinine Clr Calc Pharmacy 97.3 ml/min; Est GFR (Non-African American) 92.3 ml/min
[2023-09-13 06:52] LABS: Estimated Average Glucose 120 mg/dl; Hemoglobin A1C 5.8 % (4.5-5.6)
--- NOTE | 2023-09-13 08:53 | Electrocardiogram Report ---
Test Reason : Blood Pressure : / mmHG Vent. Rate : 082 BPM Atrial Rate : 082 BPM P-R Int : 148 ms QRS Dur : 074 ms QT Int : 360 ms P-R-T Axes : 019 -03 031 degrees QTc Int : 420 ms Normal sinus rhythm When compared with ECG of 31-MAY-2013 09:16, Criteria for Inferior infarct are no longer Present Nonspecific T wave abnormality has replaced inverted T waves in Inferior leads Confirmed by Sony Gage ([id number]) on 09/13/2023 8:53:08 AM Referred By: Rodrigo Conn Confirmed By:Maikol Gage
[2023-09-13] MEDS: CLOPIDOGREL BISULFATE 75 MG TAB PO SCH (09:16)
[2023-09-13] MEDS: MULTIVITAMIN TAB PO SCH (09:16)
[2023-09-13] MEDS: CYANOCOBALAMIN (B-12) 500 MCG TABLET PO SCH (09:16)
[2023-09-13] MEDS: CHOLECALCIFEROL 25 MCG (1000 UNITS) TAB PO SCH (09:16)
--- NOTE | 2023-09-13 09:46 | XCELERA ---
[id number]
--- NOTE | 2023-09-13 14:46 | Neurology Consultation ---
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 The patient reports discomfort with moving his right eye and has limitation to extreme gaze as well. Recommend a dedicated MRI to the orbits with contrast . Recommended dedicated MRV to rule out venous sinus thrombosis (less likely on prior images. Continue aspirin 81 mg. Consider short course of steroids Send for myasthenia gravis antibodies given history of worsening throughout the day however typically with myasthenia symptoms will not improve in the evening (2) Headache: Mild and intermittent associated with gaze straining. Plan Symptomatic treatment Telehealth Consultation Telehealth Information Telehealth Information: I performed this visit using a real-time telehealth connection between my location and the patients location ([facility]). After connecting through interactive tele-video, patient was identified by name and date of and/or wristband check.Patient (or authorized healthcare enrollment representative) was informed that this was a telemedicine visit and it was being conducted confidentially over secure lines. My office door was closed and no one else was present in the room with me.Patient (or authorized healthcare enrollment representative) provided consent to proceed with the visit, expressed an understanding of privacy and security of the telemedicine visit, and gave permission to have a hospital enrollment representative in the room in order to assist with the visit and to conduct portions of the visit, as needed. I informed the patient (or authorized healthcare enrollment representative) that I reviewed their record and presented the opportunity for them to ask any questions regarding the visit today. The patient agreed to participate. History of Present Illness Reason for Consultation: Double vision Requesting Physician: Dr Sanz Attending Physician: Umu Bravo MD History of Present Illness Mr. Sony Keating is a 63-year-old male patient with PMH of CAD, mild mitral regurgitation and chronic seasonal allergies who presents with diplopia that has been going on for 3 weeks more prominent on rightward gaze. The patient has been complaining of sinusitis and allergic rhinitis with conge stion of his eyes for the past 3 weeks as well has been using multiple medications. Including Zyrtec. Reports a history of diplopia that happened in June also lasted for 2 to 3 weeks and resolved spontaneously. Reports headaches that are intermittent and associated with straining his vision, He has been having some photophobia. Denies any eyelid droopiness, reports worsening of his symptoms throughout the day, but in the evening he reports his symptoms get better. Denies any constant headaches. Denies any numbness or weakness, denies any gait difficulties, denies any slurred speech or difficulties with swallowing Allergies Allergy/AdvReac Type Severity Reaction Status Date / Time No Known Allergies Allergy Verified 09/12/23 20:41 Home Medications Medication Instructions Recorded Confirmed Type aspirin 81 mg tablet,delayed 81 mg PO HS 07/26/19 09/12/23 History release cholecalciferol (vitamin D3) 25 75 mcg PO DAILY 07/26/19 09/12/23 History mcg (1,000 unit) capsule ascorbic acid (vitamin C) 500 mg 500 mg PO HS 08/20/21 09/12/23 History tablet (Vitamin C) cyanocobalamin (vitamin B-12) 1,000 mcg PO DAILY 08/20/21 09/12/23 History 1,000 mcg tablet atorvastatin 80 mg tablet 80 mg PO HS 09/12/23 09/12/23 History multivitamin 1 tab PO DAILY 09/12/23 09/12/23 History trazodone 50 mg tablet 50 mg PO HS PRN Sleep 09/12/23 09/12/23 History Patient History Medical History (Updated 09/12/23 @ 21:05 by Marquita Kruger MD) Closed head injury 7 YEARS AGO>FELL 8 FEET AT WORK (DENIES ANY CURRENT PROBLEMS FROM EVENT) Surgical History History of colonoscopy History of tonsillectomy S/P tonsillectomy S/P hernia repair Family History Father Myocardial infarction Brother Prostate cancer Grandmother (Maternal) Family history of diabetes mellitus Other No family history of adverse response to anesthesia Denies family history of Ovarian cancer Breast cancer Colorectal cancer Social History Smoking Status: Unknown if ever smoked Cigarettes Per Day: USING NICOTINE PATCH NOW *TRYING TO QUIT CHEWING; Second Hand Exposure: Yes ( A CHILD); Do You Dip or Chew Tobacco: No (SEE ABOVE); Hx Alcohol Use: Yes Alcohol type: beer Alcohol Intake Frequency: Monthly or Less Hx Substance Use: No Preferred Language: Kyrgyz Communication Ability: Effective Visual Impairment: No Limitations Hearing Ability: Normal Kitchen Help Handyman Required: No Beliefs That Will Affect Care: None marital status: Single Current Living Situation: Alone current occupational status: unemployed Other Information That Helps Us Care for You: No Feels Safe at Home: Yes Safety Concerns: Feels Safe At This Time Dental Care, Regularly: Yes Physical Activity Frequency: Other Physical Activity Frequency Comment: patient states that he is active Seatbelt Use: always Sunscreen Use: No Assistive Devices: None Review of Systems Constitutional: Patient denies weight loss, fever, chills, and night sweats Eyes: Patient denies change in vision, tearing, pain, and redness ENT: seasonal allergies congestion , rhinorrhea, denies dysphagia Cardiovascular: Patient denies chest pain, palpitation, dyspnea at rest, and dyspnea with exertion Respiratory: Patient denies shortness of breath, cough, wheezing, and productive cough GI: Patient denies reflux, pain, constipation, and diarrhea Skin: Patient denies rash, dryness, and itching Allergies/Immune System: Patient denies rhinorrhea, seasonal allergies, reaction to current MEDS, and joint swelling Endocrine: Patient denies weight loss, weight gain, temperature intolerance, and excessive thirst Neurological: All negative unless mentioned in the HPI Physical Exam General Constitutional: Appearance normally developed Head and face: normocephalic and atraumatic Eyes: no ptosis, no anisocoria, and no dysconjugate gaze Respiratory: normal effort Cardiovascular: regular rhythm and regular rate Abdomen: non distended Skin: no rashes, lesions, or ulcers noted Psychiatric: normal judgement and insight, normal mood, and normal affect NEUROLOGIC EXAMINATION: Mental Status:alert, oriented to time, place, person, normal recent memory, normal remote memory, normal attention span, normal concentration, normal language and normal fund of knowledge Cranial Nerves: CN 2 - no visual defect on confrontation and pupils round, equal, reactive to light CN 3, 4, 6 - decreased adduction of the right eye with some nystagmus of the left eyeon right harvey gaze, reports severe diplopia and discomfort on right harvey gaze and some diplopia on extremeleftward gaze CN 5 - facial sensation intact CN 7 - no facial asymmetry CN 8 - intact hearing CN 9, 10 - palate symmetric, normal gag CN 11 - good shoulder shrug CN 12 - tongue midline MOTOR: Strength was at least antigravity throughout, Pronator drift was absent and There were no abnormal movements SENSATION: intact and symmetric to pinprick, light touch, vibration and joint position GAIT: stable, no ataxia and can perform tandem walking COORDINATION: no ataxia with finger to nose testing and heel to edwards testing REFLEXES: cannot assess over telemedicine Results & Data Vital Signs (Past 12 Hours) Vital Signs Temp Pulse Pulse Resp BP Pulse Ox O2 Del Method 09/13/23 12:21 36.4 C L 66 18 119/76 94 Room Air 09/13/23 08:02 59 L 09/13/23 03:29 36.7 C 56 L 20 125/82 97 Room Air Laboratory Results Abnormal lab results 09/12/23 09/13/23 09/13/23 Range/Units 17:04 00:00 05:38 Harris # (Auto) 0.67 H 0.67 H (0.11-0.59) K/uL Chloride 108 H (98-107) mmol/L Glucose 152 H (70-99(Fasting)) mg/dl Hemoglobin A1c 5.8 H (4.5-5.6) % Ur Leukocyte Esterase Trace H (Negative) Diagnostic Findings Head CT 09/12/23 17:01 CT head/brain wo con CLINICAL HISTORY: 63 years-old Male with dizziness/headache. Acute headache with dizziness TECHNIQUE: Multiple axial CT images of the head were obtained without contrast. A dose lowering technique was utilized adhering to the principles of ALARA. CT DOSE: 547.75 mGy.cm COMPARISON: 07/07/2016 FINDINGS: No acute intracranial hemorrhage, midline shift, intracranial mass, hydrocephalus, territorial ischemia or abnormal extra-axial collection. The calvarium is intact. Mild mucosal thickening of the ethmoid air cells. The mastoid air cells are clear. IMPRESSION: No acute intracranial abnormality. ACT 112: Negative or not required by law. The above report was generated using voice recognition software. It may contain grammatical, syntax or spelling errors. Electronically signed by: Gautam Pablo M.D. 09/12/2023 5:28 PM Brain MRI 09/12/23 17:59 Exam(s): MRI HEAD Without Contrast EXAM: MR Head Without Intravenous Contrast CLINICAL HISTORY: Reason for exam: diplopia. TECHNIQUE: Magnetic resonance images of the head/brain without intravenous contrast in multiple planes. COMPARISON: CT head from September 12, 2023. FINDINGS: Brain: Unremarkable. No mass. No hemorrhage. No acute infarct. Ventricles: Unremarkable. No ventriculomegaly. Bones/joints: Unremarkable. No acute fracture. Sinuses: Trace amount of mucosal thickening involving several the ethmoid air cells and right frontal sinus. No gas/fluid levels are seen. The remaining paranasal sinuses are within normal limits. Mastoid air cells: Unremarkable as visualized. No mastoid effusion. Orbits: Unremarkable as visualized. IMPRESSION: No acute findings in the head/brain. Electronically signed by: Everton Rivera MD 09/12/23 20:12 PM Head CTA 09/12/23 23:07 Exam(s): CTA HEAD With Contrast IV Amt: 119 ml optiray 320 EXAM: CT Angiography Head With Intravenous Contrast CLINICAL HISTORY: Reason for exam: diplopia. TECHNIQUE: Axial computed tomographic angiography images of the head with intravenous contrast. CTDI is 41.7 mGy and DLP is 541.51 mGy-cm. Automated exposure control was utilized for the study. A dose lowering technique was utilized adhering to the principles of ALARA. MIP reconstructed images were created and reviewed. CONTRAST: Patient received 119 ml optiray 320 of IV contrast COMPARISON: No relevant prior studies available. FINDINGS: Right internal carotid artery: Small amount of calcified plaque in the distal right internal carotid artery with less than 20% stenosis. No aneurysm. Right anterior cerebral artery: Unremarkable. No occlusion or significant stenosis. No aneurysm. Right middle cerebral artery: Unremarkable. No occlusion or significant stenosis. No aneurysm. Right posterior cerebral artery: Unremarkable. No occlusion or significant stenosis. No aneurysm. Right vertebral artery: Unremarkable as visualized. Left internal carotid artery: No acute findings. Intracranial segment is patent with no significant stenosis. No aneurysm. Left anterior cerebral artery: Unremarkable. No occlusion or significant stenosis. No aneurysm. Left middle cerebral artery: Unremarkable. No occlusion or significant stenosis. No aneurysm. Left posterior cerebral artery: There is a normal anatomic variant of origin of the left posterior cerebral artery from the anterior circulation. No occlusion or significant stenosis. No aneurysm. Left vertebral artery: Unremarkable as visualized. Basilar artery: Unremarkable. No occlusion or significant stenosis. No aneurysm. IMPRESSION: No acute findings in the arteries of the head/brain. Electronically signed by: Everton Rivera MD 09/13/23 00:59 AM Neck CTA 09/12/23 23:07 Exam(s): CTA NECK With Contrast IV Amt: 119 ml optiray 320 EXAM: CT Angiography Neck With Intravenous Contrast CLINICAL HISTORY: Reason for exam: diplopia. TECHNIQUE: Routine carotid CT angiography protocol was performed with intravenous contrast. NASCET criteria using the distal ICAs for comparison were used for evaluation of stenoses. CTDI is 41.7 mGy and DLP is 541.51 mGy-cm. Automated exposure control was utilized for the study. A dose lowering technique was utilized adhering to the principles of ALARA. MIP reconstructed images were created and reviewed. CONTRAST: Patient received 119 ml optiray 320 of IV contrast COMPARISON: None. FINDINGS: VASCULATURE: Right common carotid artery: Unremarkable. No occlusion or significant stenosis. No dissection. Right internal carotid artery: Unremarkable. Extracranial segment is patent with no occlusion or significant stenosis. No dissection. Right external carotid artery: Unremarkable. No occlusion. Right vertebral artery: Unremarkable. No occlusion or significant stenosis. No dissection. Left common carotid artery: Small amount of calcified plaque in the distal left common carotid artery with less than 20% stenosis. No dissection. Left internal carotid artery: Unremarkable. Extracranial segment is patent with no occlusion or significant stenosis. No dissection. Left external carotid artery: Unremarkable. No occlusion. Left vertebral artery: Unremarkable. No occlusion or significant stenosis. No dissection. Aorta: The aortic arch is mildly calcified but nondilated. There is no aneurysm or dissection. NECK: Bones/joints: Mild to moderate multilevel degenerative changes throughout the spine. No acute fracture or subluxation is seen. Soft tissues: Unremarkable. Lung apices: Clear. CAROTID STENOSIS REFERENCE USING NASCET CRITERIA: % ICA stenosis = (1 - narrowest ICA diameter/diameter of distal cervical ICA) x 100. Mild - <50% stenosis. Moderate - 50-69% stenosis. Severe - 70-94% stenosis. Near occlusion - 95-99% stenosis. Occluded - 100% stenosis. IMPRESSION: No acute findings in the arteries of the neck. Electronically signed by: Everton Rivera MD 09/13/23 00:58 AM Medications Administered Home Medications Medication Instructions Recorded Confirmed Last Taken aspirin 81 mg tablet,delayed 81 mg PO HS 07/26/19 09/12/23 09/11/23 release cholecalciferol (vitamin D3) 25 75 mcg PO DAILY 07/26/19 09/12/2324 mcg (1,000 unit) capsule ascorbic acid (vitamin C) 500 mg 500 mg PO HS 08/20/21 09/12/23 09/11/23 tablet (Vitamin C) cyanocobalamin (vitamin B-12) 1,000 mcg PO DAILY 08/20/21 09/12/23 09/12/23 1,000 mcg tablet atorvastatin 80 mg tablet 80 mg PO HS 09/12/23 09/12/23 09/11/23 multivitamin 1 tab PO DAILY 09/12/23 09/12/23 09/12/23 trazodone 50 mg tablet 50 mg PO HS PRN Sleep 09/12/23 09/12/23 Unknown Active Medications Generic Name Dose Route Start Last Admin Trade Name Chuckq PRN Reason Stop Dose Admin Acetaminophen 650 mg 09/12/23 23:07 09/13/23 00:01 Acetaminophen 325 Mg Tab PO 10/12/23 23:06 650 mg Q4H PRN Administration Pain or Fever Aspirin 81 mg 09/12/23 23:07 09/13/23 00:01 Aspirin 81 Mg Ectab PO 10/12/23 23:06 81 mg HS TESSA Administration Atorvastatin Calcium 80 mg 09/12/23 23:07 09/13/23 00:01 Atorvastatin 40 Mg Tab PO 10/12/23 23:06 80 mg HS TESSA Administration Clopidogrel Bisulfate 75 mg 09/13/23 09:00 09/13/23 09:16 Clopidogrel Bisulfate 75 Mg Tab PO 10/13/23 08:59 75 mg QAM TESSA Administration Cyanocobalamin 1,000 mcg 09/13/23 09:00 09/13/23 09:16 Cyanocobalamin (B-12) 500 Mcg Tablet PO 10/13/23 08:59 1,000 mcg DAILY TESSA Administration Multivitamins 1 tab 09/13/23 09:00 09/13/23 09:16 Multivitamin Tab PO 10/13/23 08:59 1 tab DAILY TESSA Administration Vitamin D 75 mcg 09/13/23 09:00 09/13/23 09:16 Cholecalciferol 25 Mcg (1000 Units) Tab PO 10/13/23 08:59 75 mcg DAILY TESSA Administration
--- NOTE | 2023-09-13 14:52 | Neurology Consultation ---
Date of Consultation September 13, 2023 Assessment & Plan (1) Diplopia: Plan duplicate document please discard Telehealth Consultation Telehealth Information Telehealth Information: duplicate document , please discard History of Present Illness Reason for Consultation: diplopia Attending Physician: Umu Bravo MD Allergies Allergy/AdvReac Type Severity Reaction Status Date / Time No Known Allergies Allergy Verified 09/12/23 20:41 Home Medications Medication Instructions Recorded Confirmed Type aspirin 81 mg tablet,delayed 81 mg PO HS 07/26/19 09/12/23 History release cholecalciferol (vitamin D3) 25 75 mcg PO DAILY 07/26/19 09/12/23 History mcg (1,000 unit) capsule ascorbic acid (vitamin C) 500 mg 500 mg PO HS 08/20/21 09/12/23 History tablet (Vitamin C) cyanocobalamin (vitamin B-12) 1,000 mcg PO DAILY 08/20/21 09/12/23 History 1,000 mcg tablet atorvastatin 80 mg tablet 80 mg PO HS 09/12/23 09/12/23 History multivitamin 1 tab PO DAILY 09/12/23 09/12/23 History trazodone 50 mg tablet 50 mg PO HS PRN Sleep 09/12/23 09/12/23 History Patient History Medical History (Updated 09/12/23 @ 21:05 by Marquita Kruger MD) Closed head injury 7 YEARS AGO>FELL 8 FEET AT WORK (DENIES ANY CURRENT PROBLEMS FROM EVENT) Surgical History History of colonoscopy History of tonsillectomy S/P tonsillectomy S/P hernia repair Family History Father Myocardial infarction Brother Prostate cancer Grandmother (Maternal) Family history of diabetes mellitus Other No family history of adverse response to anesthesia Denies family history of Ovarian cancer Breast cancer Colorectal cancer Social History Smoking Status: Unknown if ever smoked Cigarettes Per Day: USING NICOTINE PATCH NOW *TRYING TO QUIT CHEWING; Second Hand Exposure: Yes ( A CHILD); Do You Dip or Chew Tobacco: No (SEE ABOVE); Hx Alcohol Use: Yes Alcohol type: beer Alcohol Intake Frequency: Monthly or Less Hx Substance Use: No Preferred Language: Tamazight Communication Ability: Effective Visual Impairment: No Limitations Hearing Ability: Normal Senior Java Engineer Required: No Beliefs That Will Affect Care: None marital status: Single Current Living Situation: Alone current occupational status: unemployed Other Information That Helps Us Care for You: No Feels Safe at Home: Yes Safety Concerns: Feels Safe At This Time Dental Care, Regularly: Yes Physical Activity Frequency: Other Physical Activity Frequency Comment: patient states that he is active Seatbelt Use: always Sunscreen Use: No Assistive Devices: None Results & Data Vital Signs (Past 12 Hours) Vital Signs Temp Pulse Pulse Resp BP Pulse Ox O2 Del Method 09/13/23 12:21 36.4 C L 66 18 119/76 94 Room Air 09/13/23 08:02 59 L 09/13/23 03:29 36.7 C 56 L 20 125/82 97 Room Air
--- NOTE | 2023-09-13 15:07 | Hospitalist Progress Note ---
Date of Service September 13, 2023 Assessment & Plan (1) Diplopia: Plan: 63-year-old male with past medical history significant for CAD, prediabetes, hyperlipidemia, chronic chest pain syndrome, mitral regurgitation presents because of double vision when he is looking to the right side going on for last 3 to 4 weeks. Worsens as day progresses Associated with photophobia and headache Similar episode in June Diplopia CT head and MRI head unremarkable. [facility] recommended aspirin and statin for possible ischemic nerve palsy if diabetic Patient is already on aspirin and statin. Plavix was added by Admitting Dr ARRIAGA head and neck were unremarkable. Echocardiogram noted normal left ventricular systolic function. A patent foramen ovale suspected. No significant valvular heart disease Discussed with neurologist who evaluated the patient. Neuro: MRI with and without contrast gated to the orbits [right], MRV to rule out venous sinus thrombosis, continue aspirin, short course of steroid, send myasthenia gravis antibodies and stop Plavix. Myasthenia gravis reference panel ordered Will follow up MRI orbit/MRV Started on prednisone Prediabetes HbA1c 5.8 History of CAD On aspirin and statin Follows with cardiology Hyperlipidemia On statin Will follow lipid profile JERILYN DVT prophylaxis SCDs for now Disposition Telemetry Full code I spent a total of 50 minutes coordinating, documenting and providing care for this patient excluding time spent in performance of separately billed services Admission and Anticipated Discharge Date Admission Date: September 12, 2023 Subjective Patient seen and examined. Reports he has been having double vision especially looking towards the right for the past 2 to 3 weeks. This usually worsens as the day goes on. Reports photophobia. some right eye discomfort Reported similar episode in June which lasted a few weeks and resolved spontaneously. Reports this is occasionally associated with headache Denies any numbness, focal weakness. Denies any chest pain, cough, shortness of breath Denies any palpitations, Denies nausea, vomiting, abdominal pain, diarrhea Denies fevers or chills Denies dysuria, frequency or urgency. Physical Exam Constitutional: + well hydrated; no acute distress Eyes: PERRL, conjunctivae normal, anicteric sclerae No ptosis ENMT: external ear and nose normal, oropharynx normal Cardiovascular: Rate/Rhythm: regular rate and regular rhythm S1 S2 Gastrointestinal (Abdomen): normal bowel sounds, soft, nontender, no hepatosplenomegaly Musculoskeletal: no cyanosis or clubbing, extremities motor strength 5/5 Neurologic: PERRL, EOMI, accommodation nl, no face palsy, no dysarthria Psychiatric: A+Ox3, euthymic affect Results & Data Results & Data Vital Signs (Past 12 Hours) Vital Signs Temp Pulse Pulse Resp BP Pulse Ox O2 Del Method 09/13/23 12:21 36.4 C L 66 18 119/76 94 Room Air 09/13/23 08:02 59 L 09/13/23 03:29 36.7 C 56 L 20 125/82 97 Room Air Laboratory Results Abnormal lab results 09/12/23 09/13/23 09/13/23 Range/Units 17:04 00:00 05:38 [place]aver # (Auto) 0.67 H 0.67 H (0.11-0.59) K/uL Chloride 108 H (98-107) mmol/L Glucose 152 H (70-99(Fasting)) mg/dl Hemoglobin A1c 5.8 H (4.5-5.6) % Ur Leukocyte Esterase Trace H (Negative)
[2023-09-13] MEDS: predniSONE 20 MG TAB PO SCH (16:20)
[2023-09-13] MEDS: GADOBUTROL 65ML VIAL IV ONE (18:33)
--- NOTE | 2023-09-13 18:53 | Magnetic Resonance Report ---
MR venography head wo con CLINICAL HISTORY: Headache. Double vision. COMPARISON STUDY: MRI of the brain and CTA of the head and head CT September 12, 2023. TECHNIQUE: Utilizing a 1.5 Laine magnet and [id number] technique, unenhanced MRV of the head was obtained. FINDINGS: The superior sagittal sinus is patent. The straight sinus is patent. The bilateral transver se and sigmoid sinuses are patent. The proximal bilateral internal jugular veins are patent. There is no evidence for dural sinus thrombosis on this exam. IMPRESSION: No evidence for dural sinus thrombosis. ACT 112: Negative or not required by law. Electronically signed by: Leon Bradshaw M.D. 09/13/2023 6:51 PM
--- NOTE | 2023-09-13 19:00 | Magnetic Resonance Report ---
MR orbit wo/w con CLINICAL HISTORY: Diplopia. COMPARISON STUDY: MRI of the brain and head CT September 12, 2023. TECHNIQUE: Utilizing a 1.5 Laine magnet and dedicated coil, multiplanar, multi echo imaging of the or bits was performed pre and postcontrast administration. FINDINGS: Globes are intact. No retrobulbar abnormalities identified. Extraocular muscles are symmetr ic in appearance and unremarkable. There is no orbital mass. No fluid collections within the orbits a re identified. The superior ophthalmic veins are not dilated. There is moderate ethmoid and frontal s inus mucosal thickening. No intracranial masses identified on postcontrast images. Ventricular system is normal. The basal cisterns are patent. There are no extraaxial collections. IMPRESSION: 1. Unremarkable MRI of the orbits. 2. Moderate ethmoid and frontal sinus mucosal thickening. ACT 112: Negative or not required by law. Electronically signed by: Leon Bradshaw M.D. 09/13/2023 6:57 PM
[2023-09-13] MEDS: ASCORBIC ACID 500 MG TAB PO SCH (20:13)
[2023-09-14 06:46] LABS: Hematocrit (blood only) 44.8 % (42.0-52.0); Hemoglobin 15.5 g/dl (14.0-18.0); Mean Corpuscular Hemoglobin 31.1 pg (25.0-34.0); Mean Corpuscular Hgb Conc 34.6 g/dL (32.0-36.0); Mean Corpuscular Volume 89.8 fL (80.0-100.0); Mean Platelet Volume 12.2 fL (9.4-12.4); Platelet Count 213 K/uL (130-400); RDW Coefficient of Variation 13.5 % (11.5-14.5); RDW Standard Deviation 44.5 fL (36.4-46.3); Red Blood Count 4.99 M/uL (4.70-6.10); White Blood Count 12.47 K/ul (4.8-10.8)
[2023-09-14 07:08] LABS: BUN Creatinine Ratio 21.9 (10-20); Calcium 9.3 mg/dl (8.6-10.3); Creatinine Clr Calc Pharmacy 86.9 ml/min; Est GFR (African American) 97.1 ml/min; Est GFR (Non-African American) 83.8 ml/min; Potassium 4.1 mmol/L (3.5-5.1)
--- NOTE | 2023-09-14 14:29 | Hospitalist Progress Note ---
Date of Service September 14, 2023 Assessment & Plan (1) Diplopia: Plan: 63-year-old male with past medical history significant for CAD, prediabetes, hyperlipidemia, chronic chest pain syndrome, mitral regurgitation presents because of double vision when he is looking to the right side going on for last 3 to 4 weeks. Worsens as day progresses, Associated with photophobia and headache. Similar episode in June Diplopia Suspected orbital inflammatory process with possible 6th nerve palsy --MRI Brain: No acute findings in the head/brain. --Head CTA: No acute findings in the arteries of the head/brain. --Neck CTA:No acute findings in the arteries of the neck. --Head MRV:No evidence for dural sinus thrombosis. --Orbit MRI: Unremarkable MRI of the orbits. Moderate ethmoid and frontal sinus mucosal thickening. --ECHO:Left ventricle systolic function is normal. Patent foramina ovale is suspected. Right ventricular systolic pressure is normal. No significant valvular heart disease. --Lipid Panel: Normal --Appreciate neurology input --Myasthenia gravis reference panel pending Continue aspirin Continue short course of prednisone Needs follow-up with neurology and ophthalmology as outpatient Advised to avoid driving until cleared by neurology Prediabetes HbA1c 5.8 History of CAD On aspirin and statin Follows with cardiology Hyperlipidemia On statin JERILYN as per records DVT prophylaxis SCDs for now Code Status Full code Admission and Anticipated Discharge Date Admission Date: September 12, 2023 Subjective Patient is seen and examined at bedside Headache resolved Still has some double vision on right side with rightward gaze States no double vision while using correctional lenses Denies any nausea, vomiting, chest pain, dyspnea, dizziness Discussed with neurology today Review of Systems Review of Systems: All systems reviewed & are unremarkable except as noted in Subjective Physical Exam Physical Exam: Physical Exam: Vitals signs as noted above General Appearance:Moderately built and nourished, no apparent distress Head: normocephalic, Atraumatic Eyes: normal inspection, EOMI, +R double vision with rightward gaze Neck: supple, Trachea midline Respiratory/Chest: Normal breath sounds, CTA, No accessory muscle use Cardiovascular: S1, S2, No murmur Abdomen/GI:Soft, Non tender, Bowel sounds present Extremities/Musculoskeletal:normal inspection, no edema Neurologic/Psych:AAOX3, grossly no focal neurological deficits Skin: normal color, warm Results & Data Results & Data Vital Signs (Past 12 Hours) Vital Signs Temp Pulse Pulse Resp BP Pulse Ox O2 Del Method 09/14/23 11:15 36.6 C 69 18 120/76 95 Room Air 09/14/23 10:58 62 09/14/23 07:40 36.6 C 55 L 18 115/69 95 Room Air 09/14/23 02:33 36.5 C 60 16 103/53 L 95 Room Air Laboratory Results Short CBC 09/14/23 Range/Units 06:07 WBC 12.47 H (4.8-10.8) K/ul Hgb 15.5 (14.0-18.0) g/dl Hct 44.8 (42.0-52.0) % Plt Count 213 (130-400) K/uL BMP 09/14/23 06:07 Sodium 138 Potassium 4.1 Chloride 107 Carbon Dioxide 22 BUN 21 Creatinine 0.96 Glucose 112 H Calcium 9.3
--- NOTE | 2023-09-14 14:43 | Discharge Summary ---
Date of Service September 14, 2023 Admission HPI Per Admitting Provider 63-year-old male with past medical history significant for CAD, prediabetes, hyperlipidemia, chronic chest pain syndrome, mitral regurgitation presents because of double vision when he is looking to the right side going on for last 3 to 4 weeks. Patient states when he looks to left-sided vision is okay. In the morning vision seems okay. As a day progress it gets worse. Lights bothering him. Sunlight is also bothering him. Having headaches. States vision is better when he closes his right eye. Patient states had similar symptoms in June for 3 to 4 weeks and and then one day he had a sweating and all symptoms resolved. And symptoms started back again 3 to 4 weeks ago. No difficulty ambulating. No imbalance. Climbing steps okay. Currently no earache or runny nose or sore throat. No cough. No difficulty swallowing. Appetite is okay. No chest pain or shortness of breath. No nausea. No abdominal pain. Normal bowel and bladder movements. Currently resting comfortably and hemodynamically stable. Past medical history. As mentioned above. Past surgical history. Colonoscopy. Tonsillectomy. S/p hernia repair. Family history. Significant for father had OR. Brother had prostate cancer. Family history of diabetes. Social history. Denies smoking. Quit chewing tobacco about a year ago. Alcohol occasional. No drug use. Admission Exam Per Admitting Provider General- Not in distress. Head- atraumatic Eyes- PERRL, EOMI. ENT- oropharynx clear Neck- supple, no JVD. Lungs- clear to auscultation no wheezing or crackles. Heart- regular rate and rhythm; no murmur, no gallop. Abdomen- normal bowel sounds, soft, nontender, no distension. Extremities- no pretibial edema, no erythema seen. Neuro- alert, oriented PERRL, EOMI; no facial palsy; no dysarthria; motor 5/5 bilaterally; co ordination of movements normal, no pronator drift,sensations intact,Position sense intact. Principal Diagnosis Diplopia Discharge Data Allergies Allergy/AdvReac Type Severity Reaction Status Date / Time No Known Allergies Allergy Verified 09/12/23 20:41 Consultations 09/12/23 20:41 ED Decision to Admit Stat 09/13/23 08:00 Consult Neurology Routine Procedures Performed Laboratory Results WBC 12.47 K/ul (4.8-10.8) H 09/14/23 06:07 RBC 4.99 M/uL (4.70-6.10) 09/14/23 06:07 Hgb 15.5 g/dl (14.0-18.0) 09/14/23 06:07 Hct 44.8 % (42.0-52.0) 09/14/23 06:07 MCV 89.8 fL (80.0-100.0) 09/14/23 06:07 MCH 31.1 pg (25.0-34.0) 09/14/23 06:07 MCHC 34.6 g/dL (32.0-36.0) 09/14/23 06:07 RDW Std Deviation 44.5 fL (36.4-46.3) 09/14/23 06:07 RDW Coeff of Horacio 13.5 % (11.5-14.5) 09/14/23 06:07 Plt Count 213 K/uL (130-400) 09/14/23 06:07 MPV 12.2 fL (9.4-12.4) 09/14/23 06:07 Immature Gran % (Auto) 0.1 % 09/13/23 05:38 Neut % (Auto) 54.7 % 09/13/23 05:38 Lymph % (Auto) 33.2 % 09/13/23 05:38 Lipscomb % (Auto) 8.2 % 09/13/23 05:38 Eos % (Auto) 3.2 % 09/13/23 05:38 Baso % (Auto) 0.6 % 09/13/23 05:38 Neut # (Auto) 4.46 K/uL (1.40-6.50) 09/13/23 05:38 Lymph # (Auto) 2.71 K/uL (1.20-3.40) 09/13/23 05:38 Lipscomb # (Auto) 0.67 K/uL (0.11-0.59) H 09/13/23 05:38 Eos # (Auto) 0.26 K/uL (0.00-0.50) 09/13/23 05:38 Baso # (Auto) 0.05 K/uL (0.00-0.20) 09/13/23 05:38 Immature Gran # (Auto) 0.01 K/uL (0.01-0.20) 09/13/23 05:38 ESR 6 mm/hr (0-20) 09/13/23 05:38 PT 10.3 Seconds (9.0-12.0) 09/12/23 17:04 INR 0.9 (0.9-1.1) 09/12/23 17:04 APTT 23 Seconds (21-31) 09/12/23 17:04 PTT Ratio 0.9 09/12/23 17:04 Sodium 138 mmol/L (136-145) 09/14/23 06:07 Potassium 4.1 mmol/L (3.5-5.1) 09/14/23 06:07 Chloride 107 mmol/L (98-107) 09/14/23 06:07 Carbon Dioxide 22 mmol/L (21-32) 09/14/23 06:07 Anion Gap 9 (3-11) 09/14/23 06:07 BUN 21 mg/dl (6-23) 09/14/23 06:07 Creatinine 0.96 mg/dl (0.6-1.4) 09/14/23 06:07 Est Cr Clr Drug Dosing 86.9 ml/min 09/14/23 06:07 Est GFR ( Amer) 97.1 ml/min 09/14/23 06:07 Est GFR (Non-Af Amer) 83.8 ml/min 09/14/23 06:07 BUN/Creatinine Ratio 21.9 (10-20) H 09/14/23 06:07 Glucose 112 mg/dl (70-99(Fasting)) H 09/14/23 06:07 Estimat Average Glucose 120 mg/dl 09/13/23 05:38 Hemoglobin A1c 5.8 % (4.5-5.6) H 09/13/23 05:38 Calcium 9.3 mg/dl (8.6-10.3) 09/14/23 06:07 Magnesium 2.0 mg/dl (1.7-2.4) 09/13/23 05:38 Total Bilirubin 0.5 mg/dl (0.2-1.0) 09/12/23 17:04 AST 22 U/L (13-39) 09/12/23 17:04 ALT 31 U/L (7-52) 09/12/23 17:04 Alkaline Phosphatase 72 U/L (34-104) 09/12/23 17:04 Troponin I High Sens 2.5 pg/ml (0-20) 09/12/23 17:04 Total Protein 7.3 gm/dl (6.0-8.3) 09/12/23 17:04 Albumin 4.5 gm/dl (3.4-5.0) 09/12/23 17:04 Globulin 2.8 gm/dl (2.5-4.0) 09/12/23 17:04 Albumin/Globulin Ratio 1.6 (0.9-2) 09/12/23 17:04 Triglycerides 137 mg/dl (0-150) 09/13/23 05:38 Cholesterol 127 mg/dl (0-200) 09/13/23 05:38 LDL Cholesterol, Calc 60 mg/dl 09/13/23 05:38 VLDL Cholesterol, Calc 27 mg/dl (0-30) 09/13/23 05:38 HDL Cholesterol 40 mg/dl 09/13/23 05:38 Cholesterol/HDL Ratio 3.2 (0-5) 09/13/23 05:38 Urine Color Yellow 09/13/23 00:00 Urine Appearance Clear (Clear) 09/13/23 00:00 Urine pH 5.5 (4.5-7.5) 09/13/23 00:00 Ur Specific [place] 1.021 (1.000-1.030) 09/13/23 00:00 Urine Protein Negative (Negative) 09/13/23 00:00 Urine Glucose (UA) Negative (Negative) 09/13/23 00:00 Urine Ketones Negative (Negative) 09/13/23 00:00 Urine Blood Negative (Negative) 09/13/23 00:00 Urine Nitrite Negative (Negative) 09/13/23 00:00 Urine Bilirubin Negative (Negative) 09/13/23 00:00 Urine Urobilinogen Negative (Negative) 09/13/23 00:00 Ur Leukocyte Esterase Trace (Negative) H 09/13/23 00:00 Urine WBC (Auto) 0-5 /hpf (0-5) 09/13/23 00:00 Urine RBC (Auto) 0-2 /hpf (0-2) 09/13/23 00:00 U Hyaline Cast (Auto) 0-2 /lpf (0-2) 09/13/23 00:00 U Epithel Cells (Auto) 0-2 /hpf (0-2) 09/13/23 00:00 Urine Bacteria (Auto) None Seen (None Seen) 09/13/23 00:00 Hepatitis C Ab (EIA) NON-REACTIVE (NON-REACTIVE) 09/13/23 05:[address] 09/12/23 17:01 CT head/brain wo con CLINICAL HISTORY: 63 years-old Male with dizziness/headache. Acute headache with dizziness TECHNIQUE: Multiple axial CT images of the head were obtained without contrast. A dose lowering technique was utilized adhering to the principles of ALARA. CT DOSE: 547.75 mGy.cm COMPARISON: 07/07/2016 FINDINGS: No acute intracranial hemorrhage, midline shift, intracranial mass, hydrocephalus, territorial ischemia or abnormal extra-axial collection. The calvarium is intact. Mild mucosal thickening of the ethmoid air cells. The mastoid air cells are clear. IMPRESSION: No acute intracranial abnormality. ACT 112: Negative or not required by law. The above report was generated using voice recognition software. It may contain grammatical, syntax or spelling errors. Electronically signed by: Gautam Pablo M.D. 09/12/2023 5:28 PM Brain MRI 09/12/23 17:59 Exam(s): MRI HEAD Without Contrast EXAM: MR Head Without Intravenous Contrast CLINICAL HISTORY: Reason for exam: diplopia. TECHNIQUE: Magnetic resonance images of the head/brain without intravenous contrast in multiple planes. COMPARISON: CT head from September 12, 2023. FINDINGS: Brain: Unremarkable. No mass. No hemorrhage. No acute infarct. Ventricles: Unremarkable. No ventriculomegaly. Bones/joints: Unremarkable. No acute fracture. Sinuses: Trace amount of mucosal thickening involving several the ethmoid air cells and right frontal sinus. No gas/fluid levels are seen. The remaining paranasal sinuses are within normal limits. Mastoid air cells: Unremarkable as visualized. No mastoid effusion. Orbits: Unremarkable as visualized. IMPRESSION: No acute findings in the head/brain. Electronically signed by: Everton Rivera MD 09/12/23 20:12 PM Head CTA 09/12/23 23:07 Exam(s): CTA HEAD With Contrast IV Amt: 119 ml optiray 320 EXAM: CT Angiography Head With Intravenous Contrast CLINICAL HISTORY: Reason for exam: diplopia. TECHNIQUE: Axial computed tomographic angiography images of the head with intravenous contrast. CTDI is 41.7 mGy and DLP is 541.51 mGy-cm. Automated exposure control was utilized for the study. A dose lowering technique was utilized adhering to the principles of ALARA. MIP reconstructed images were created and reviewed. CONTRAST: Patient received 119 ml optiray 320 of IV contrast COMPARISON: No relevant prior studies available. FINDINGS: Right internal carotid artery: Small amount of calcified plaque in the distal right internal carotid artery with less than 20% stenosis. No aneurysm. Right anterior cerebral artery: Unremarkable. No occlusion or significant stenosis. No aneurysm. Right middle cerebral artery: Unremarkable. No occlusion or significant stenosis. No aneurysm. Right posterior cerebral artery: Unremarkable. No occlusion or significant stenosis. No aneurysm. Right vertebral artery: Unremarkable as visualized. Left internal carotid artery: No acute findings. Intracranial segment is patent with no significant stenosis. No aneurysm. Left anterior cerebral artery: Unremarkable. No occlusion or significant stenosis. No aneurysm. Left middle cerebral artery: Unremarkable. No occlusion or significant stenosis. No aneurysm. Left posterior cerebral artery: There is a normal anatomic variant of origin of the left posterior cerebral artery from the anterior circulation. No occlusion or significant stenosis. No aneurysm. Left vertebral artery: Unremarkable as visualized. Basilar artery: Unremarkable. No occlusion or significant stenosis. No aneurysm. IMPRESSION: No acute findings in the arteries of the head/brain. Electronically signed by: Everton Rivera MD 09/13/23 00:59 AM Neck CTA 09/12/23 23:07 Exam(s): CTA NECK With Contrast IV Amt: 119 ml optiray 320 EXAM: CT Angiography Neck With Intravenous Contrast CLINICAL HISTORY: Reason for exam: diplopia. TECHNIQUE: Routine carotid CT angiography protocol was performed with intravenous contrast. NASCET criteria using the distal ICAs for comparison were used for evaluation of stenoses. CTDI is 41.7 mGy and DLP is 541.51 mGy-cm. Automated exposure control was utilized for the study. A dose lowering technique was utilized adhering to the principles of ALARA. MIP reconstructed images were created and reviewed. CONTRAST: Patient received 119 ml optiray 320 of IV contrast COMPARISON: None. FINDINGS: VASCULATURE: Right common carotid artery: Unremarkable. No occlusion or significant stenosis. No dissection. Right internal carotid artery: Unremarkable. Extracranial segment is patent with no occlusion or significant stenosis. No dissection. Right external carotid artery: Unremarkable. No occlusion. Right vertebral artery: Unremarkable. No occlusion or significant stenosis. No dissection. Left common carotid artery: Small amount of calcified plaque in the distal left common carotid artery with less than 20% stenosis. No dissection. Left internal carotid artery: Unremarkable. Extracranial segment is patent with no occlusion or significant stenosis. No dissection. Left external carotid artery: Unremarkable. No occlusion. Left vertebral artery: Unremarkable. No occlusion or significant stenosis. No dissection. Aorta: The aortic arch is mildly calcified but nondilated. There is no aneurysm or dissection. NECK: Bones/joints: Mild to moderate multilevel degenerative changes throughout the spine. No acute fracture or subluxation is seen. Soft tissues: Unremarkable. Lung apices: Clear. CAROTID STENOSIS REFERENCE USING NASCET CRITERIA: % ICA stenosis = (1 - narrowest ICA diameter/diameter of distal cervical ICA) x 100. Mild - <50% stenosis. Moderate - 50-69% stenosis. Severe - 70-94% stenosis. Near occlusion - 95-99% stenosis. Occluded - 100% stenosis. IMPRESSION: No acute findings in the arteries of the neck. Electronically signed by: Everton Rivera MD 09/13/23 00:58 AM Head/Brain Mag Res Venography 09/13/23 14:57 MR venography head wo con CLINICAL HISTORY: Headache. Double vision. COMPARISON STUDY: MRI of the brain and CTA of the head and head CT September 12, 2023. TECHNIQUE: Utilizing a 1.5 Laine magnet and [id number] technique, unenhanced MRV of the head was obtained. FINDINGS: The superior sagittal sinus is patent. The straight sinus is patent. The bilateral transverse and sigmoid sinuses are patent. The proximal bilateral internal jugular veins are patent. There is no evidence for dural sinus thrombosis on this exam. IMPRESSION: No evidence for dural sinus thrombosis. ACT 112: Negative or not required by law. Electronically signed by: Leon Bradshaw M.D. 09/13/2023 6:51 PM Orbit MRI 09/13/23 14:57 MR orbit wo/w con CLINICAL HISTORY: Diplopia. COMPARISON STUDY: MRI of the brain and head CT September 12, 2023. TECHNIQUE: Utilizing a 1.5 Laine magnet and dedicated coil, multiplanar, multi echo imaging of the orbits was performed pre and postcontrast administration. FINDINGS: Globes are intact. No retrobulbar abnormalities identified. Extraocular muscles are symmetric in appearance and unremarkable. There is no orbital mass. No fluid collections within the orbits are identified. The superior ophthalmic veins are not dilated. There is moderate ethmoid and frontal sinus mucosal thickening. No intracranial masses identified on postcontrast images. Ventricular system is normal. The basal cisterns are patent. There are no extraaxial collections. IMPRESSION: 1. Unremarkable MRI of the orbits. 2. Moderate ethmoid and frontal sinus mucosal thickening. ACT 112: Negative or not required by law. Electronically signed by: Leon Bradshaw M.D. 09/13/2023 6:57 PM Ordered Studies 09/12/23 17:01 CT head/brain wo con Stat 09/12/23 17:59 MRI Brain [MR brain wo con] Stat 09/12/23 23:07 CTA head w con [CT angio head w con] Urgent CTA neck with con [CT angio neck with con] Urgent 09/13/23 14:57 MR venography head wo con Urgent MRI Orbit [MR orbit wo/w con] Urgent Hospital Course (1) Diplopia: 63-year-old male with past medical history significant for CAD, prediabetes, hyperlipidemia, chronic chest pain syndrome, mitral regurgitation presents because of double vision when he is looking to the right side going on for last 3 to 4 weeks. Worsens as day progresses, Associated with photophobia and headache. Similar episode in June Diplopia Suspected orbital inflammatory process with possible 6th nerve palsy --MRI Brain: No acute findings in the head/brain. --Head CTA: No acute findings in the arteries of the head/brain. --Neck CTA:No acute findings in the arteries of the neck. --Head MRV:No evidence for dural sinus thrombosis. --Orbit MRI: Unremarkable MRI of the orbits. Moderate ethmoid and frontal sinus mucosal thickening. --ECHO:Left ventricle systolic function is normal. Patent foramina ovale is suspected. Right ventricular systolic pressure is normal. No significant valvular heart disease. --Lipid Panel: Normal --Appreciate neurology input --Myasthenia gravis reference panel pending Continue aspirin Continue short course of prednisone Needs follow-up with neurology and ophthalmology as outpatient Advised to avoid driving until cleared by neurology Prediabetes HbA1c 5.8 History of CAD On aspirin and statin Follows with cardiology Hyperlipidemia On statin JERILYN as per records DVT prophylaxis SCDs for now Code Status Full code Total Time Total Time Spent Total Time Spent (In Minutes): 53 minutes Discharge Plan Discharge Items Patient Disposition: Home - Self-Care Reason For Visit: DIPLOPIA Discharge Diagnosis: Diplopia Activity: Per Instructions section Exercise/Sports: Wait until after follow-up appointment Driving/Machine Use: Avoid until cleared by Neurology Non-emergency contact: Primary Care Provider, Neurologist and Talent Acquisition Sourcer Call non-emergency contact if: you have any medication questions, your symptoms worsen, your pain is concerning for you and you have a fever Follow-up/Referrals: Rodrigo Conn MD [Primary Care Provider] - Diet: Heart Healthy Addtl Attending Provider Instructions: Follow-up with your primary care physician Dr. Conn in 1 week as advised Follow-up with your neurologist Dr.El Dupree in 2-3 weeks Follow-up with your control room agent next week as scheduled --Complete prednisone course as prescribed --Your blood test:Myasthenia gravis Panel is pending at the time of discharge. Follow-up with your physician for results. Seek immediate medical attention if your symptoms reoccur or worsen Please take all medications as instructed on discharge list below. Please call if you have any questions or problems. You can reach a [facility] hospitalist on duty at [facility] 24 hours a day by calling [phone] Pending Studies at Discharge: Yes Studies:: Myasthenia gravis Panel Stand-Alone Forms: [facility], Smoking Cessation Medications and DC Order Prescriptions: New prednisone 20 mg Tablet 40 mg PO DAILY 3 Days Qty: 6 0RF Continued aspirin 81 mg tablet,delayed release (DR/EC) 81 mg PO HS cholecalciferol (vitamin D3) 25 mcg (1,000 unit) capsule 75 mcg PO DAILY cyanocobalamin (vitamin B-12) 1,000 mcg Tablet 1,000 mcg PO DAILY ascorbic acid (vitamin C) [Vitamin C] 500 mg Tablet 500 mg PO HS multivitamin Tablet 1 tab PO DAILY atorvastatin 80 mg Tablet 80 mg PO HS trazodone 50 mg tablet 50 mg PO HS PRN (Reason: Sleep) Patient Comments: PT STATES TAKES PRN SLEEP Discharge Orders: Discharge Order (Routine); Ordered 09/14/23 Ordered By: Anatoly Levine Admission Data Admit Date/Time: 09/12/23 21:36 Attending Provider: Anatoly Levine Admit Provider: Ramu Cordero Primary Care Provider: Rodrigo Conn Other Providers: Ramu Cordero; Marci Ramon; Cristobal Jose; Marci Hairston; Miguel Coronel; Casey Jones; Dionte Clark; Jose Carlos Torres; Terrie Chairez; Neto Harrison; Judson Yang; Yolis Byrne; Davey Rashid; Vera Ortega; Alice Anand; Jose Carlos Collier; [facility]
[2023-09-14] MEDS ORDERED: predniSONE 20 MG TAB PO SCH (15:30)
[2023-09-14] MEDS ORDERED: Nursing to Pharmacy Communication SCH (15:30)
== END 2023-09-14 16:24 | disposition home or self-care (01) | DRG 123 ==
LOC: ED 16:57 → SUATTDRO 21:36 → 2S 21:36